=== PATIENT | male | born 1960 | race Caucasian/White ===

== ENCOUNTER 2016-07-07 18:08 | Outpatient (CLI) | payer MEDICAID | END 2016-07-07 18:09 | disposition critical access hospital (66) | LOC: EMS 18:08 | PROVIDERS: ATTEND Surgery | DX: R56.9 Unspecified convulsions (principal) | CPT/HCPCS: A0425; A0429 ==

== ENCOUNTER 2016-07-07 18:20 | Emergency (ER) | payer MEDICAID ==
[2016-07-07] MEDS ORDERED: FOLIC ACID INJ 1 MG, THIAMINE INJ 100 MG, MAGNESIUM SULFATE 2 GM, MULTIVITAMIN 10 ML in... IV STA ×5 (18:26)
--- NOTE | 2016-07-07 18:49 | ED Physician Documentation ---
PD HPI SEIZURE - Stated complaint Stated Complaint: SYNCOPE - Chief complaint Chief Complaint: Neuro - History obtained from History obtained from: Patient, Family, EMS - History of Present Illness Timing - onset: Today Witnessed: Witnessed Number of seizures: Single, Lasted minutes (2) Description of seizure activity: Generalized, Tonic clonic Injury during seizure: Fell, Head injury. 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 Did not drink EtOH today. Has been a heavy drinker for years. Review of Systems Ten Systems: 10 systems reviewed and negative Constitutional: denies: Fever, Chills Ears: denies: Ear pain Nose: denies: Rhinorrhea / runny nose, Congestion Throat: denies: Sore throat Cardiac: denies: Chest pain / pressure Respiratory: denies: Cough GI: denies: Abdominal Pain, Nausea, Vomiting, Diarrhea Skin: denies: Rash Musculoskeletal: denies: Neck pain, Back pain Neurologic: reports: Seizure. denies: Focal weakness, Numbness PD PAST MEDICAL HISTORY - Past Medical History Past Medical History: No - Past Surgical History Past Surgical History: No - Allergies Allergies/Adverse Reactions: Allergies Allergy/AdvReac Type Severity Reaction Status Date / Time Unable to Assess Allergy Verified 07/07/16 18:29 - Living Situation Living Situation: reports: With family Living Arrangement: reports: At home - Social History Does the pt drink ETOH?: Yes ETOH Use: Liquor Does the pt have substance abuse?: No PD ED PE NORMAL - Vitals Vital signs reviewed: Yes - General General: Alert and oriented X 3, No acute distress, Well developed/nourished - HEENT HEENT: Atraumatic, PERRL, EOMI, Ears normal, Moist mucous membranes, Pharynx benign, Other (2cm laceration bridge of nose) - Neck Neck: Supple, no meningeal sign, No bony TTP - Cardiac Cardiac: RRR, Strong equal pulses - Respiratory Respiratory: No respiratory distress, Clear bilaterally - Abdomen Abdomen: Soft, Non tender, Non distended - Back Back: No spinal TTP - Derm Derm: Warm and dry, No rash - Extremities Extremities: No deformity, No edema, No calf tenderness / cord - Neuro Neuro: Alert and oriented X 3, 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, No motor deficit, No sensory deficit, Normal speech, Other (resting tremor) - Psych Psych: Normal mood, Normal affect Results - Vitals Vitals: Vital Signs - 24 hr 07/07/16 07/07/16 18:25 21:33 Temperature 36.6 C Heart Rate 104 H 91 Respiratory 16 Rate Blood Pressure 172/111 H 147/100 H O2 Saturation 99 99 Oxygen O2 Source Room air - EKG (time done) 1829 Rate: Rate (enter#) (100) Rhythm: Sinus tachycardia [place]: Normal Intervals: Normal [place] QRS: Normal Ischemia: Normal ST segments Computer interpretation: Agree with computer - Labs Labs: Laboratory Tests 07/07/16 07/07/16 18:40 18:40 WBC 4.8 RBC 3.23 L Hgb 12.9 L Hct 37.9 L MCV 117.2 H MCH 39.9 H MCHC 34.0 RDW 15.4 H Plt Count 178 MPV 8.1 Neut # 3.6 Lymph # 0.8 L [place] # 0.3 Eos # 0.0 Baso # 0.1 Absolute Nucleated RBC 0.01 Nucleated RBCs 0.2 Manual Slide Review Indicated WBC Morphology NORMAL APPEARANCE Platelet Estimate NORMAL (130-450,000) Platelet Morphology NORMAL APPEARANCE RBC Morph Micro Appear 2+ MACROCYTOSIS Sodium 135 Potassium 3.4 L Chloride 97 L Carbon Dioxide 18 L Anion Gap 20.0 H BUN 9 Creatinine 0.6 Estimated GFR (MDRD) 141 Glucose 152 H Calcium 9.2 Total Bilirubin 1.3 H AST 113 H ALT 62 H Alkaline Phosphatase 83 Total Protein 6.8 Albumin 4.2 Globulin 2.6 Albumin/Globulin Ratio 1.6 Lipase 23 Ethyl Alcohol 9.2 - Rads (name of study) head CT Radiology: Prelim report reviewed, EMP read contemporaneously, See rad report ( Soft tissue swelling in the region of the nasal bones. No displaced nasal bone fracture. Nasal bones are partially out of the [id number]. Generalized age- related cortical atrophic changes without evidence of acute intracranial abnormality. ) cervical spine cT Radiology: Prelim report reviewed, EMP read contemporaneously, See rad report ( No fracture. Normal alignment. Multilevel degenerative disk and facet arthropathy, see above) Procedures - Laceration (location) bridge of nose Length in cm: 2 Wound type: Linear, Curved, Superficial, Into subcut fat, Clean Neurovascular status: Sensory intact, Motor intact, Vascular intact Wound Preparation: Irrigated copiously NS Skin layer closure: Dermabond Other: Patient tolerated well, No complications, Neurovascular intact, Tetanus UTD Complexity: Simple PD MEDICAL DECISION MAKING - ED course Complexity details: reviewed results, re-evaluated patient, considered differential, d/w patient, d/w family ED course: Patient is a 55-year-old gentleman who is a heavy alcoholic. Did not drink alcohol today and appears to have had an alcohol withdrawal seizure. Laceration across the bridge of the nose was repaired with Dermabond. Tolerated well. No acute findings on CT scans or laboratory testing. Given a banana bag here. Also given Ativan and his tremors resolved as did his tachycardia. He is given resources for alcohol detox and encouraged to pursue this as an outpatient for inpatient detox. No hallucination here. No further seizures. Patient and family counseled regarding signs and symptoms for which I believe and urgent re-evaluation would be necessary. Patient with good understanding of and agreement to plan and is comfortable going home at this time This document was made in part using voice recognition software. While efforts are made to proofread this document, sound alike and grammatical errors may occur. Departure - Departure Disposition: 01 Home, Self Care Clinical Impression: Alcohol withdrawal seizure Qualifiers: Complication of substance-induced condition: uncomplicated Qualified Code(s): F10.230 - Alcohol dependence with withdrawal, uncomplicated Nasal laceration Qualifiers: Encounter type: initial encounter Qualified Code(s): S01.21XA - Laceration without foreign body of nose, initial encounter Condition: Good Instructions: ED Seizure Alcohol Withdrawal Follow-Up: your,doctor in 1 week [Other] Comments: You were given resources for alcohol detox tonight. You need to go to an inpatient detox unit. You have damage to your liver and brain from your alcohol use. Return if you worsen. Discharge Date/Time: 07/07/16 21:57
[2016-07-07 18:59] LABS: BASOPHILS # (AUTO) 0.1 10^3/uL (0.0-0.1); BASOPHILS % (AUTO) 1.3 %; EOSINOPHILS % (AUTO) 0.8 %; HCT - HEMATOCRIT 37.9 % (42.0-52.0); HGB - HEMOGLOBIN 12.9 g/dL (14.0-18.0); LYMPHOCYTES # (AUTO) 0.8 10^3/uL (1.5-3.5); LYMPHOCYTES % (AUTO) 17.1 %; MEAN CORPUSCULAR HEMOGLOBIN 39.9 pg (27.0-31.0); MEAN CORPUSCULAR VOLUME 117.2 fL (80.0-94.0); MEAN PLATELET VOLUME 8.1 fL (7.4-11.4); MONOCYTES # (AUTO) 0.3 10^3/uL (0.0-1.0); MONOCYTES % (AUTO) 6.9 %; NEUTROPHILS # (AUTO) 3.6 10^3/uL (1.5-6.6); NEUTROPHILS % (AUTO) 73.9 %; NUCLEATED RED BLOOD CELLS AUTO 0.2 /100WBC; RED BLOOD COUNT 3.23 10^6/uL (4.70-6.10); RED CELL DISTRIBUTION WIDTH 15.4 % (12.0-15.0); UNCORRECTED WHITE BLOOD COUNT 4.8 x10^3/uL; WHITE BLOOD COUNT 4.8 x10^3/uL (4.8-10.8)
[2016-07-07 19:08] LABS: ALBUMIN/GLOBULIN RATIO 1.6 (1.0-2.2); BILIRUBIN,TOTAL 1.3 mg/dL (0.2-1.0); CALCIUM 9.2 mg/dL (8.5-10.3); CREATININE 0.6 mg/dL (0.6-1.2); POTASSIUM 3.4 mmol/L (3.5-5.0); TOTAL PROTEIN 6.8 g/dL (6.7-8.2)
--- NOTE | 2016-07-07 19:45 | CT Preliminary Report ---
Exam: CT Head W/O IMPRESSION: 1. Soft tissue swelling in the region of the nasal bones. No displaced nasal bone fracture. Nasal bon es are partially out of the field of view. 2. Generalized age-related cortical atrophic changes without evidence of acute intracranial abnormali ty. [facility] SITE ID: [id number]
--- NOTE | 2016-07-07 19:53 | CT Preliminary Report ---
Exam: CT Cervical Spine W/O IMPRESSION: 1. No fracture. 2. Normal alignment. Multilevel degenerative disk and facet arthropathy, see above. [facility] SITE ID: [id number]
[2016-07-07] MEDS ORDERED: LORazepam 2 MG/ML SYRINGE IVP STA (20:09)
[2016-07-07 20:12] LABS: PLATELET ESTIMATE, MANUAL NORMAL (130-450,000) (NORMAL); PLATELET MORPHOLOGY NORMAL APPEARANCE (NORMAL)
[2016-07-07 20:13] LABS: WBC MORPHOLOGY (MULTIPLE) NORMAL APPEARANCE (NORMAL)
[2016-07-07] MEDS ORDERED: LORazepam 2 MG/ML SYRINGE ONE (20:20)
--- NOTE | 2016-07-07 20:20 | CT Report ---
EXAM: CT CERVICAL SPINE WITHOUT CONTRAST DATE: 07/07/2016 07:14 PM HISTORY: Fall, neck pain. COMPARISONS: None. TECHNIQUE: Thin-section axial images were acquired of the cervical spine without contrast. Post-proce ssing: Coronal and sagittal reformats. Other: None. In accordance with CT protocol optimization, one or more of the following dose reduction techniques w ere utilized for this exam: automated exposure control, adjustment of mA and/or KV based on patient s ize, or use of iterative reconstructive technique. FINDINGS: Alignment: Normal. No scoliosis or spondylolisthesis. Bones: No fracture or bone lesion. Interspace Levels/Facets: C1-C2: Mild degenerative changes at the C1 arch and dens articulation. C2-C3: Mild disk narrowing. C3-C4: Mild disk narrowing. C4-C5: Mild disk narrowing with small disk osteophyte complex. No foraminal stenosis. C5-C6: Mild to moderate disk narrowing with prominent disk osteophyte complex. Moderate to marked lef t and mild right foraminal stenosis. C6-C7: Mild to moderate disk narrowing with prominent disk osteophyte complex. Mild to moderate right foraminal stenosis. C7-T1: Unremarkable. Musculature: Normal. No fatty atrophy. Other: The paravertebral and prevertebral soft tissues are normal. The lung apices are clear. IMPRESSION: 1. No fracture. 2. Normal alignment. Multilevel degenerative disk and facet arthropathy, see above. [facility] Referring Provider Line: [phone] SITE ID: [id number]
--- NOTE | 2016-07-07 20:22 | CT Report ---
EXAM: CT HEAD EXAM DATE: 07/07/2016 07:12 PM. CLINICAL HISTORY: Seizure. COMPARISON: None. TECHNIQUE: Multiaxial CT images were obtained from the foramen magnum to the vertex. IV contrast: Non e. Reformats: Coronal. In accordance with CT protocol optimization, one or more of the following dose reduction techniques w ere utilized for this exam: automated exposure control, adjustment of mA and/or KV based on patient s ize, or use of iterative reconstructive technique. FINDINGS: Parenchyma: No intraparenchymal hemorrhage. No evidence of mass, midline shift, or CT findings of acu te infarction. Worrell-white differentiation is distinct. Extraaxial Spaces: Normal for age. No subdural or epidural collections identified. Ventricles: The ventricles and cortical sulci are enlarged, consistent with age-related tissue loss. Sinuses: Imaged paranasal sinuses, orbits, and mastoids show no significant abnormality. Bones: No evidence of fracture or calvarial defect. Other: Diffuse chronic microangiopathic white matter changes are evident. Mild swelling overlies the nasal bones. Nasal bones are not well evaluated and partially extend out of the [id number]. IMPRESSION: 1. Soft tissue swelling in the region of the nasal bones. No displaced nasal bone fracture. Nasal bon es are partially out of the [id number]. 2. Generalized age-related cortical atrophic changes without evidence of acute intracranial abnormali ty. [facility] Referring Provider Line: [phone] SITE ID: [id number]
[2016-07-07 21:34] VITALS: BP 147/100
== END 2016-07-07 21:57 | disposition home or self-care (01) ==
LOC: ED 18:20
DX: F10.239 Alcohol dependence with withdrawal, unspecified (principal); R56.9 Unspecified convulsions; S01.21XA Laceration without foreign body of nose, initial encounter; W01.0XXA Fall on same level from slipping, tripping and stumbling without subsequent striking against object, initial encounter
CPT/HCPCS: 12011; 36415; 70450; 72125; 80053; 80320; 83690; 85025; 93005; 93010; 96374; 96375; 99284; J2060; J3411

== ENCOUNTER 2017-02-25 08:12 | Observation (INO) | payer MEDICAID ==
[2017-02-25] MEDS ORDERED: SODIUM CHLORIDE 0.9% 1,000 ML IV ONE ×2 (09:09→10:41)
--- NOTE | 2017-02-25 09:12 | ED Physician Documentation ---
History of Present Illness - Stated complaint Stated Complaint: VOMITING/LETHARGIC - Chief complaint Chief Complaint: General - History obtained from History obtained from: Patient, Family (spouse) - Additonal information Additional information: The patient is a 56-year-old alcoholic male who presents with history of vomiting intermittently for the past week. He has had no alcohol for the past day and a half, and has become increasingly tremulous and nauseated. He complains of upper abdominal pain which he ascribes to "heartburn." He reports increasing difficulty with balance, as well as double vision. He has been sleepy. He reports cough, without sputum production. He denies fever. Past medical history is significant for alcohol withdrawal seizure in June 2016. Review of Systems Constitutional: reports: Fatigue. denies: Fever Eyes: reports: Other (Double vision) Ears: denies: Tinnitus/ringing Nose: denies: Congestion Throat: denies: Sore throat Cardiac: denies: Chest pain / pressure Respiratory: reports: Cough. denies: Dyspnea GI: reports: Abdominal Pain, Nausea, Vomiting. denies: Diarrhea : denies: Dysuria Skin: denies: Rash Musculoskeletal: denies: Back pain, Extremity pain Neurologic: reports: Generalized weakness, Other (Difficulty with balance.). denies: Focal weakness, Numbness, Headache, Head injury PD PAST MEDICAL HISTORY - Past Medical History Cardiovascular: None Respiratory: None Neuro: Other (Alcohol withdrawal seizure) Endocrine/Autoimmune: None - Past Surgical History Past Surgical History: No - Present Medications Home Medications: Ambulatory Orders Medication Instructions Recorded Confirmed No Known Home Medications [No 02/25/17 02/25/17 Known Home Medications] - Allergies Allergies/Adverse Reactions: Allergies Allergy/AdvReac Type Severity Reaction Status Date / Time Unable to Assess Allergy Verified 02/25/17 08:23 - Living Situation Living Situation: reports: With spouse/s.o. Living Arrangement: reports: At home - Social History Does the pt drink ETOH?: Yes Does the pt have substance abuse?: No PD ED PE NORMAL - Vitals Vital signs reviewed: Yes (Tachycardic) - General General: Alert and oriented X 3, Other (Tremulous) - HEENT HEENT: Atraumatic, PERRL, Pharynx benign, Other (Nystagmus bilaterally.) - Neck Neck: Supple, no meningeal sign, No adenopathy, No JVD - Cardiac Cardiac: No murmur, Other (Rapid rate, regular rhythm.) - Respiratory Respiratory: No respiratory distress, Clear bilaterally - Abdomen Abdomen: Soft, Other (Mild upper abdominal tenderness to palpation, more right than left. No rebound tenderness or guarding.) - Back Back: No CVA TTP - Derm Derm: No rash - Extremities Extremities: No edema, No calf tenderness / cord - Neuro Neuro: Alert and oriented X 3, No motor deficit, No sensory deficit, Other ( Generalized tremulousness.) Eye Opening: Spontaneous Motor: Obeys Commands Verbal: Oriented GCS Score: 15 Results - Vitals Vitals: Vital Signs - 24 hr 02/25/17 02/25/17 08:18 13:32 Temperature 36.3 C L Heart Rate 128 H 86 Respiratory 16 17 Rate Blood Pressure 130/100 H 136/89 H O2 Saturation 100 96 Oxygen O2 Source Room air - EKG (time done) 09:34 Rate: Rate (enter#) (90) Rhythm: NSR [place]: Normal Intervals: Normal [place] QRS: Normal Ischemia: Normal ST segments Computer interpretation: Agree with computer - Labs Labs: Laboratory Tests 02/25/17 02/25/17 02/25/17 09:05 09:05 09:05 WBC 7.4 RBC 3.98 L Hgb 14.4 Hct 40.4 L MCV 101.5 H MCH 36.2 H MCHC 35.6 RDW 15.9 H Plt Count 175 MPV 7.6 Neut # 6.0 Lymph # 0.6 L [place] # 0.8 Eos # 0.0 Baso # 0.0 Absolute Nucleated RBC 0.02 Nucleated RBC % 0.3 PT 12.1 INR 1.1 Sodium 133 L Potassium 3.8 Chloride 91 L Carbon Dioxide 16 L Anion Gap 26.0 H BUN 19 Creatinine 0.9 Estimated GFR (MDRD) 88 L Glucose 158 H Lactic Acid Calcium 9.6 Total Bilirubin 4.0 H AST 68 H ALT 74 H Alkaline Phosphatase 68 Troponin I Total Protein 7.7 Albumin 4.7 Globulin 3.0 Albumin/Globulin Ratio 1.6 Lipase 58 H Ethyl Alcohol < 5.0 02/25/17 02/25/17 09:05 15:15 WBC RBC Hgb Hct MCV MCH MCHC RDW Plt Count MPV Neut # Lymph # [place] # Eos # Baso # Absolute Nucleated RBC Nucleated RBC % PT INR Sodium Potassium Chloride Carbon Dioxide Anion Gap BUN Creatinine Estimated GFR (MDRD) Glucose Lactic Acid 1.4 Calcium Total Bilirubin AST ALT Alkaline Phosphatase Troponin I < 0.04 Total Protein Albumin Globulin Albumin/Globulin Ratio Lipase Ethyl Alcohol - Rads (name of study) head CT Radiology: Prelim report reviewed, EMP read contemporaneously, See rad report ( No acute abnormality or interval change.) PD MEDICAL DECISION MAKING - ED course Complexity details: reviewed old records, reviewed results, re-evaluated patient , considered differential, d/w patient, d/w family, d/w knowledge management consultant ED course: The patient's presentation is significant for hyperbilirubinemia and vomiting with dehydration. Bilirubin is elevated at 4.0. The patient has been unable to eat or drink due to nausea and vomiting, and has subsequently developed alcohol withdrawal symptoms. Treatment in the emergency department included administration of normal saline 2 L IV, as well as a banana bag, lorazepam 1 mg IV, Zofran 4 mg IV, and hydromorphone 1 mg IV. Despite the above treatment he was not able to provide a urine sample. Bladder scan reveals in excess of 300 mL in the bladder. A Capone catheter is being inserted. I discussed his condition with Dr. Mckeon who will admit him on observation status for further evaluation and treatment. Departure - Departure Disposition: ED Place in Observation Clinical Impression: Hyperbilirubinemia, Dehydration Vomiting Qualifiers: Vomiting type: unspecified Vomiting Intractability: non-intractable Nausea presence: with nausea Qualified Code(s): R11.2 - Nausea with vomiting, unspecified Alcohol withdrawal Qualifiers: Complication of substance-induced condition: with unspecified complication Qualified Code(s): F10.239 - Alcohol dependence with withdrawal, unspecified Condition: Stable
[2017-02-25] MEDS ORDERED: LORazepam 2 MG/ML VIAL IVP STA (09:17)
[2017-02-25 09:33] LABS: BASOPHILS % (AUTO) 0.3 %; HGB - HEMOGLOBIN 14.4 g/dL (14.0-18.0); LYMPHOCYTES # (AUTO) 0.6 10^3/uL (1.5-3.5); LYMPHOCYTES % (AUTO) 8.6 %; MEAN CORPUSCULAR HEMOGLOBIN 36.2 pg (27.0-31.0); MEAN CORPUSCULAR HGB CONC 35.6 g/dL (32.0-36.0); MEAN CORPUSCULAR VOLUME 101.5 fL (80.0-94.0); MEAN PLATELET VOLUME 7.6 fL (7.4-11.4); MONOCYTES # (AUTO) 0.8 10^3/uL (0.0-1.0); MONOCYTES % (AUTO) 10.3 %; NEUTROPHILS % (AUTO) 80.8 %; PLT - PLATELET COUNT 175 10^3/uL (130-450); RED BLOOD COUNT 3.98 10^6/uL (4.70-6.10); RED CELL DISTRIBUTION WIDTH 15.9 % (12.0-15.0); WHITE BLOOD COUNT 7.4 x10^3/uL (4.8-10.8)
[2017-02-25 09:34] LABS: ALBUMIN 4.7 g/dL (3.2-5.5); ALBUMIN/GLOBULIN RATIO 1.6 (1.0-2.2); ALKALINE PHOSPHATASE 68 IU/L (42-121); ALT ALANINE AMINOTRANSFERASE 74 IU/L (10-60); AST ASPARTATE AMINOTRANSFERASE 68 IU/L (10-42); BUN - BLOOD UREA NITROGEN 19 mg/dL (6-20); CALCIUM 9.6 mg/dL (8.5-10.3); CARBON DIOXIDE - CO2 16 mmol/L (21-32); CHLORIDE 91 mmol/L (101-111); CREATININE 0.9 mg/dL (0.6-1.2); GFR - MDRD 88 (>89); GLUCOSE 158 mg/dL (70-100); LIPASE 58 U/L (22-51); SODIUM 133 mmol/L (135-145); TOTAL PROTEIN 7.7 g/dL (6.7-8.2)
[2017-02-25 09:39] LABS: INR 1.1 (0.8-1.2); PT - PROTHROMBIN TIME 12.1 secs (9.9-12.6)
[2017-02-25] MEDS ORDERED: diphenhydrAMINE 25 MG CAPSULE PO STA (09:41)
--- NOTE | 2017-02-25 10:25 | CT Report ---
EXAM: CT HEAD EXAM DATE: 02/25/2017 09:55 AM. CLINICAL HISTORY: Alcoholic with history of falls, visual impairment. COMPARISON: 07/07/2016. TECHNIQUE: Multiaxial CT images were obtained from the foramen magnum to the vertex. Reformats: Coron al. IV contrast: None. In accordance with CT protocol optimization, one or more of the following dose reduction techniques w ere utilized for this exam: automated exposure control, adjustment of mA and/or KV based on patient s ize, or use of iterative reconstructive technique. FINDINGS: Parenchyma: No intraparenchymal hemorrhage. No evidence of mass, midline shift, or CT findings of inf arction. Worrell-white differentiation is distinct. Extraaxial Spaces: Normal for age. No subdural or epidural collections identified. Ventricles: Normal in size and position. Sinuses and Orbits: Imaged paranasal sinuses, orbits, and mastoids show no significant abnormality. Bones: No evidence of fracture or calvarial defect. Other: None. IMPRESSION: No acute abnormality or interval change. [facility] Referring Provider Line: [phone] SITE ID: [id number]
[2017-02-25] MEDS ORDERED: HYDROmorphone 1 MG/ML SYRINGE IVP STA (10:40)
[2017-02-25] MEDS ORDERED: MAGNESIUM SULFATE 2 GRAM 2 GM/50 ML BAG IV STA (10:41)
[2017-02-25] MEDS ORDERED: THIAMINE INJ 100 MG, FOLIC ACID INJ 1 MG in SODIUM CHLORIDE 0.9% 100ML 100 ML IV STA (10:41)
[2017-02-25] MEDS ORDERED: MULTIVITAMIN 10 ML in SODIUM CHLORIDE 0.9% 1,000 ML IV STA (10:41)
[2017-02-25] MEDS ORDERED: HYDROmorphone 1 MG/ML SYRINGE IVP PRN (16:09)
[2017-02-25] MEDS ORDERED: PROMETHAZINE 25 MG/1 ML VIAL IM PRN (16:09)
[2017-02-25] MEDS ORDERED: PROCHLORPERAZINE 10 MG/2 ML VIAL IVP PRN (16:09)
[2017-02-25] MEDS ORDERED: TEMAZEPAM 15 MG CAPSULE PO PRN (16:09)
[2017-02-25] MEDS ORDERED: oxyCODONE 5 MG TABLET PO PRN ×2 (16:09)
[2017-02-25] MEDS ORDERED: ONDANSETRON 4 MG/2 ML VIAL IVP PRN (16:09)
[2017-02-25 16:28] LABS: GLUCOSE, URINE (UA) NEGATIVE (NEGATIVE); KETONES,URINE (UA) >=80 mg/dL (NEGATIVE); LEUKOCYTE ESTERASE, URINE NEGATIVE (NEGATIVE); NITRITE,URINE NEGATIVE (NEGATIVE); OCCULT BLOOD,URINE SMALL (NEGATIVE); PROTEIN,URINE 30 mg/dL (NEGATIVE); UROBILINOGEN,URINE 4 E.U./dL (NORMAL)
[2017-02-25 16:36] LABS: CLARITY,URINE HAZY (CLEAR)
[2017-02-25 16:37] LABS: BACTERIA,URINE Few /HPF (None Seen); BILIRUBIN,URINE MODERATE (NEGATIVE); ICTOTEST,URINE POSITIVE; MUCUS,URINE Moderate Strands; RBC,URINE TNTC /HPF (0-5); SQUAMOUS EPITHELIAL CELL,UR FEW Squamous (<= Few)
[2017-02-25 16:38] LABS: CASTS, URINE 6-10 Hyaline Casts /LPF
[2017-02-25 16:41] LABS: MUDS CUTOFF CONCENTRATIONS CUTOFF CONC BELOW:
[2017-02-25 16:50] LABS: KETONES, SERUM (ACETEST) MODERATE (NEGATIVE)
[2017-02-25 16:51] LABS: SALICYLATE < 6.0 mg/dL
[2017-02-25 16:53] LABS: ACETAMINOPHEN < 10 ug/mL (10-30)
[2017-02-25] MEDS: GI COCKTAIL 120 ML BOTTLE PO SCH ×2 (16:59→21:25)
[2017-02-25] MEDS: LORazepam 2 MG/ML VIAL IVP PRN ×3 (16:59→21:24)
[2017-02-25] MEDS ORDERED: MAGNESIUM SULFATE 2 GRAM 2 GM/50 ML BAG IV ONE (17:00)
[2017-02-25 17:09] LABS: AMPHETAMINE SCREEN,URINE NEGATIVE (NEGATIVE); BENZODIAZEPINES SCREEN, URINE NEGATIVE (NEGATIVE); COCAINE SCREEN URINE NEGATIVE (NEGATIVE); METHADONE SCREEN, URINE NEGATIVE (NEGATIVE); METHAMPHETAMINES SCREEN, URINE NEGATIVE (NEGATIVE); OPIATE SCREEN, URINE POSITIVE (NEGATIVE); OXYCODONE SCREEN, URINE NEGATIVE (NEGATIVE); PROPOXYPHENE SCREEN, URINE NEGATIVE (NEGATIVE); TRICYCLIC ANTIDEPRESSANT,URINE NEGATIVE (NEGATIVE)
[2017-02-25] MEDS: SODIUM CHLORIDE FLUSH 0.9% 10 ML SYRINGE IVP PRN (18:04)
[2017-02-25] MEDS: FAMOTIDINE 20 MG/50 ML 50 ML IV SCH (21:24)
[2017-02-25] MEDS: SODIUM CHLORIDE FLUSH 0.9% 10 ML SYRINGE IVP SCH (21:24)
[2017-02-26] MEDS: SODIUM CHLORIDE FLUSH 0.9% 10 ML SYRINGE IVP PRN ×3 (00:16→08:54)
[2017-02-26] MEDS: LORazepam 2 MG/ML VIAL IVP PRN ×2 (00:16→08:04)
[2017-02-26 05:25] LABS: BASOPHILS % (AUTO) 0.6 %; EOSINOPHILS % (AUTO) 0.7 %; HGB - HEMOGLOBIN 12.1 g/dL (14.0-18.0); LYMPHOCYTES # (AUTO) 0.9 10^3/uL (1.5-3.5); LYMPHOCYTES % (AUTO) 15.5 %; MEAN CORPUSCULAR HEMOGLOBIN 35.9 pg (27.0-31.0); MEAN CORPUSCULAR HGB CONC 35.5 g/dL (32.0-36.0); MEAN CORPUSCULAR VOLUME 101.1 fL (80.0-94.0); MEAN PLATELET VOLUME 8.2 fL (7.4-11.4); MONOCYTES # (AUTO) 0.7 10^3/uL (0.0-1.0); MONOCYTES % (AUTO) 11.2 %; NEUTROPHILS # (AUTO) 4.2 10^3/uL (1.5-6.6); PLT - PLATELET COUNT 144 10^3/uL (130-450); RED BLOOD COUNT 3.37 10^6/uL (4.70-6.10); RED CELL DISTRIBUTION WIDTH 15.5 % (12.0-15.0); WHITE BLOOD COUNT 5.9 x10^3/uL (4.8-10.8)
[2017-02-26 05:30] LABS: ALBUMIN 3.9 g/dL (3.2-5.5); ALBUMIN/GLOBULIN RATIO 1.6 (1.0-2.2); BILIRUBIN,TOTAL 3.2 mg/dL (0.2-1.0); CALCIUM 9.1 mg/dL (8.5-10.3); CREATININE 0.5 mg/dL (0.6-1.2); MAGNESIUM 1.2 mg/dL (1.7-2.8); PHOSPHORUS 1.1 mg/dL (2.5-4.6); TOTAL PROTEIN 6.4 g/dL (6.7-8.2)
[2017-02-26 05:39] LABS: INR 1.1 (0.8-1.2); PT - PROTHROMBIN TIME 12.4 secs (9.9-12.6)
[2017-02-26] MEDS: SODIUM CHLORIDE FLUSH 0.9% 10 ML SYRINGE IVP SCH ×2 (05:55→14:29)
[2017-02-26] MEDS ORDERED: MAGNESIUM SULFATE 2 GRAM 2 GM/50 ML BAG IV ONE (08:11)
--- NOTE | 2017-02-26 08:28 | HISTORY & PHYSICAL EXAMINATION ---
Chief Complaint - Chief Complaint Chief Complaint: Vomiting History of Present Illness - Admitted From Admitted From:: Emergency department - History Obtained From Records Reviewed: Yes History obtained from: Patient Exam Limitations: None - History of Present Illness HPI Comment/Other: Patient is a 56-year-old gentleman with a past medical history significant for alcohol abuse status post alcohol rehab 1-1/2 years ago who is a current daily drinker and presents to the emergency department with a chief complaint of vomiting. The patient states that he has been having episodes of vomiting for the last 2 months however symptoms became significantly worse over the last week. He states that there is a garbage can next to him on the couch which is filled with bile over the last week. The patient states that over the last couple of days he has been coughing up phlegm and eventually vomits. He also complains of acid reflux. The patient states that he stopped drinking 2 days ago. He states that prior to that he was drinking about a half 1/5 of whiskey every night. The patient's also appear tremulous in the emergency department and states that his tremors have been ongoing for the last 3 months. He does state however that the tremors have been worse the last few days and that he has been having a hard time sleeping because he feels agitated and gets up every couple of hours. The patient also admits to generalized weakness he states he is so weak that he is barely able to stand up from his couch at home. The patient states that today he came into the ER because his girlfriend became concerned when she saw how much vomit was in the garbage can and due to the fact the patient was so weak. Today the patient has been having difficulty with his balance and has barely been able to walk without falling. He states that he has been holding onto the gray to keep himself up. The patient does have a history of alcohol withdrawal seizure in June 2016. Patient denies any fevers, chills, recent unintentional weight loss, changes in his appetite, headaches, night sweats, nasal congestion, sore throat, difficulty swallowing, neck pain, chest pain, shortness of air, orthopnea, PND, abdominal pain, diarrhea, constipation, urinary urgency, urinary frequency, dysuria, joint swelling, joint pain, muscle aches, back pain, neck stiffness, or any focal neurologic deficits. On presentation to the emergency department the patient was afebrile but he was tachycardic and hypertensive. The patient was also very tremulous and appeared to be in alcohol withdrawal. The patient underwent lab work which did reveal that he was hyponatremic with a significant anion gap metabolic acidosis. The patient's serum was positive for ketones concerning for alcoholic ketoacidosis. The patient also had a total bili of 4.0 with elevated AST and ALT. The patient did undergo a CT of his head which revealed no acute abnormality or interval change. The patient did appear to be confused and while in the emergency department did mention some visual hallucinations. The patient was given several doses of Ativan and IV fluids and after spending nearly 7 hours in the emergency department it was determined that the patient needed to be placed in observation for further treatment of alcohol withdrawal and his alcoholic ketoacidosis. History - Past Medical History Cardiovascular: reports: None Respiratory: reports: None Neuro: reports: Other (Tremors) Endocrine/Autoimmune: reports: None Psych: reports: Other (Alcohol abuse) - Family & Social History Family History: Mother: Alive and Well, Father: Diabetes, Type 2, Sister: Alive and Well Living arrangement: At home Living Situation: With spouse/s.o. Social History Notes: Patient is born in [place] and currently lives in [place] with his girlfriend. Patient states he did spend several years in [place]. 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 The patient previously worked in [employer]. He has never been and does not have any children. The patient's been smoking half a pack a day for the last 35 years and states he quit 2 days ago. The patient has been drinking heavily for at least the last 10 years but states he has been drinking since the age of 14. The patient states he drinks half 1/ 5 a night of whiskey. He denies any illicit drug use - POLST Patient has POLST: No POLST Status: Full Code Meds/Allgy - Home Medications Home Medications: Ambulatory Orders Medication Instructions Recorded Confirmed No Known Home Medications [No 02/25/17 02/25/17 Known Home Medications] - Allergies Allergies/Adverse Reactions: Allergies Allergy/AdvReac Type Severity Reaction Status Date / Time No Known Drug Allergies Allergy Verified 02/25/17 21:55 Review of Systems - Other Findings Other Findings: A comprehensive review of systems was performed the pertinent positives and negatives are stated above in the HPI and the remainder of the review of systems is negative. Exam - Vital Signs Reviewed Vital Signs: Yes Vital Signs: Vital Signs x48h Temp Pulse Resp BP Pulse Ox 02/26/17 03:43 36.8 C 103 H 17 138/90 H 96 - Physical Exam General Appearance: positive: Alert, Mild distress, Other (He is alert but has significant tremors and appears quite flushed. The patient seems to have difficulty giving me history as he is not specific about timeframe of when events occurred and at times seems to be confused.) Eyes Bilateral: positive: Normal inspection, PERRL, EOMI, No lid inflammation, Conjunctivae nml, No scleral icterus ENT: positive: ENT inspection nml, Pharynx nml, Dry mucous membranes. negative : Purulent nasal drainage, Pharyngeal erythema, Oral lesions Neck: positive: Nml inspection, Thyroid nml, No JVD, Trachea midline. negative : Thyromegaly, Lymphadenopathy (R), Lymphadenopathy (L), Stiff neck, Carotid bruit, Tracheal deviation Respiratory: positive: Chest non-tender, No respiratory distress, Breath sounds nml. negative: Wheezes, Rales, Rhonchi Cardiovascular: positive: No murmur, No gallop, Tachycardia Peripheral Pulses: positive: 2+ Abdomen: positive: Non-tender, No organomegaly, Nml bowel sounds, No distention. negative: Guarding, Rebound Back: positive: Nml inspection. negative: CVA tenderness (R), CVA tenderness (L ) Skin: positive: Color nml, No rash, Warm, Other (Flushed) Extremities: positive: Non-tender, Full ROM, Nml appearance, No pedal edema, Other (Tremor) Neurologic/Psychiatric: positive: Oriented x3, CN's nml (2-12), Motor nml, Sensation nml, Mood/affect nml Conclusion/Plan - Problem List (1) Alcohol withdrawal Conclusion/Plan: The patient has alcohol withdrawal with tremors, nausea and vomiting. His blood work also reveals alcoholic ketoacidosis and an elevated bilirubin and LFTs. Plan: Patient will be placed on IV fluids with a banana bag Daily thiamine, folate and multivitamin Patient will be given IV magnesium We will monitor his electrolytes closely Patient will be placed on CIWA protocol with Ativan IV as needed for alcohol withdrawal We will get a abdominal ultrasound for elevated LFTs Monitor LFTs Qualifiers: Complication of substance-induced condition: with unspecified complication Qualified Code(s): F10.239 - Alcohol dependence with withdrawal, unspecified (2) Alcoholic ketoacidosis Conclusion/Plan: Patient has history of alcoholism and presents with vomiting and severe dehydration. The patient's lab work reveals that he does have anion gap metabolic acidosis concerning for alcoholic ketoacidosis as he does have ketones in his serum. Plan: IV fluids and nutrition Monitor patient's chemistry (3) Hyponatremia Conclusion/Plan: Patient presents with hyponatremia he appears to be dehydrated and likely has hypovolemic hyponatremia. Patient will be given IV fluids and we will continue to monitor his sodium. (4) Elevated LFTs Conclusion/Plan: The patient does have elevated LFTs with significantly elevated bilirubin, AST and ALT. Given the patient's history of alcoholism it is concerning for possibility of cirrhosis. The patient however does not have any other sequelae of liver cirrhosis. Plan: Monitor LFTs Abdominal ultrasound (5) Hyperglycemia Conclusion/Plan: The patient does have hyperglycemia on presentation with a glucose of 158. Patient does not have any previous history of diabetes but does have family history. We will monitor his glucose daily and check hemoglobin A1c. (6) Tobacco abuse Conclusion/Plan: Patient has history of tobacco abuse as he smokes half a pack a day up until 2 days ago. Patient was counseled on the need to quit smoking and was offered a nicotine patch. - Lab Results Lab results reviewed: Yes Fish Bones: 02/26/17 05:00 02/26/17 05:00 Other Lab Results: Laboratory Results WBC 5.9 x10^3/uL (4.8-10.8) 02/26/17 05:00 RBC 3.37 10^6/uL (4.70-6.10) L 02/26/17 05:00 Hgb 12.1 g/dL (14.0-18.0) L 02/26/17 05:00 Hct 34.1 % (42.0-52.0) L 02/26/17 05:00 MCV 101.1 fL (80.0-94.0) H 02/26/17 05:00 MCH 35.9 pg (27.0-31.0) H 02/26/17 05:00 MCHC 35.5 g/dL (32.0-36.0) 02/26/17 05:00 RDW 15.5 % (12.0-15.0) H 02/26/17 05:00 Plt Count 144 10^3/uL (130-450) 02/26/17 05:00 MPV 8.2 fL (7.4-11.4) 02/26/17 05:00 Neut # 4.2 10^3/uL (1.5-6.6) 02/26/17 05:00 Lymph # 0.9 10^3/uL (1.5-3.5) L 02/26/17 05:00 [place] # 0.7 10^3/uL (0.0-1.0) 02/26/17 05:00 Eos # 0.0 10^3/uL (0.0-0.7) 02/26/17 05:00 Baso # 0.0 10^3/uL (0.0-0.1) 02/26/17 05:00 Absolute Nucleated RBC 0.02 x10^3/uL 02/26/17 05:00 Nucleated RBC % 0.4 /100WBC 02/26/17 05:00 PT 12.4 secs (9.9-12.6) 02/26/17 05:00 INR 1.1 (0.8-1.2) 02/26/17 05:00 Sodium 131 mmol/L (135-145) L 02/26/17 05:00 Potassium 3.3 mmol/L (3.5-5.0) L 02/26/17 05:00 Chloride 97 mmol/L (101-111) L 02/26/17 05:00 Carbon Dioxide 22 mmol/L (21-32) 02/26/17 05:00 Anion Gap 12.0 (6-13) 02/26/17 05:00 BUN 15 mg/dL (6-20) 02/26/17 05:00 Creatinine 0.5 mg/dL (0.6-1.2) L 02/26/17 05:00 Estimated GFR (MDRD) 173 (>89) 02/26/17 05:00 Glucose 115 mg/dL (70-100) H 02/26/17 05:00 Lactic Acid 1.4 mmol/L (0.5-2.2) 02/25/17 15:15 Calcium 9.1 mg/dL (8.5-10.3) 02/26/17 05:00 Phosphorus 1.1 mg/dL (2.5-4.6) L 02/26/17 05:00 Magnesium 1.2 mg/dL (1.7-2.8) L 02/26/17 05:00 Total Bilirubin 3.2 mg/dL (0.2-1.0) H 02/26/17 05:00 AST 64 IU/L (10-42) H 02/26/17 05:00 ALT 51 IU/L (10-60) 02/26/17 05:00 Alkaline Phosphatase 53 IU/L (42-121) 02/26/17 05:00 Troponin I < 0.04 ng/mL (<0.49) 02/25/17 09:05 Total Protein 6.4 g/dL (6.7-8.2) L 02/26/17 05:00 Albumin 3.9 g/dL (3.2-5.5) 02/26/17 05:00 Globulin 2.5 g/dL (2.1-4.2) 02/26/17 05:00 Albumin/Globulin Ratio 1.6 (1.0-2.2) 02/26/17 05:00 Lipase 58 U/L (22-51) H 02/25/17 09:05 Urine Color DARK YELLOW 02/25/17 16:15 Urine Clarity HAZY (CLEAR) 02/25/17 16:15 Urine pH 6.0 PH (5.0-7.5) 02/25/17 16:15 Ur Specific [place] >=1.030 (1.002-1.030) H 02/25/17 16:15 Urine Protein 30 mg/dL (NEGATIVE) H 02/25/17 16:15 Urine Glucose (UA) NEGATIVE mg/dL (NEGATIVE) 02/25/17 16:15 Urine Ketones >=80 mg/dL (NEGATIVE) H 02/25/17 16:15 Urine Occult Blood SMALL (NEGATIVE) H 02/25/17 16:15 Urine Nitrite NEGATIVE (NEGATIVE) 02/25/17 16:15 Urine Bilirubin MODERATE (NEGATIVE) H 02/25/17 16:15 Urine Urobilinogen 4 E.U./dL (NORMAL) H 02/25/17 16:15 Ur Leukocyte Esterase NEGATIVE (NEGATIVE) 02/25/17 16:15 Urine RBC TNTC /HPF (0-5) H 02/25/17 16:15 Urine WBC 4-5 /HPF (0-3) 02/25/17 16:15 Ur Squamous Epith Cells FEW Squamous (<= Few) 02/25/17 16:15 Urine Bacteria Few /HPF (None Seen) 02/25/17 16:15 Urine Casts 6-10 Hyaline Casts /LPF 02/25/17 16:15 Urine Mucus Moderate Strands 02/25/17 16:15 Ur Microscopic Review INDICATED 02/25/17 16:15 Urine Culture Comments NOT INDICATED 02/25/17 16:15 Salicylates < 6.0 mg/dL 02/25/17 16:32 Urine Opiates Screen POSITIVE (NEGATIVE) H 02/25/17 16:15 Ur Oxycodone Screen NEGATIVE (NEGATIVE) 02/25/17 16:15 Urine Methadone Screen NEGATIVE (NEGATIVE) 02/25/17 16:15 Ur Propoxyphene Screen NEGATIVE (NEGATIVE) 02/25/17 16:15 Acetaminophen < 10 ug/mL (10-30) L 02/25/17 16:32 Ur Barbiturates Screen NEGATIVE (NEGATIVE) 02/25/17 16:15 Ur Tricyclics Screen NEGATIVE (NEGATIVE) 02/25/17 16:15 Ur Phencyclidine Scrn NEGATIVE (NEGATIVE) 02/25/17 16:15 Ur Amphetamine Screen NEGATIVE (NEGATIVE) 02/25/17 16:15 U Methamphetamines Scrn NEGATIVE (NEGATIVE) 02/25/17 16:15 U Benzodiazepines Scrn NEGATIVE (NEGATIVE) 02/25/17 16:15 Urine Cocaine Screen NEGATIVE (NEGATIVE) 02/25/17 16:15 U Cannabinoids Screen POSITIVE (NEGATIVE) H 02/25/17 16:15 Ethyl Alcohol < 5.0 mg/dL 02/25/17 09:05 Serum Ketones MODERATE (NEGATIVE) H 02/25/17 16:32 - Diagnostic Imaging Results Diagnostic Imaging Results: positive: Final report reviewed Diagnostic Imaging Results Comments: CT head Impression: No acute abnormality or interval change. - EKG Results EKG Interpreted Independently: Yes EKG Findings: Sinus rhythm without ST elevations Core Measures - Anticipated LOS I expect patient to be DC'd or transferred within 96 hours.: Yes - DVT/VTE - Prophylaxis VTE/DVT Prophylaxis med ordered at admit?: Yes
[2017-02-26] MEDS ORDERED: SODIUM CHLORIDE 0.9% 250 ML IV ONE (08:46)
[2017-02-26] MEDS: POTASSIUM CHLOR 10 MEQ/100 ML 10 MEQ/100 ML BAG IV SCH ×4 (08:53→12:56)
--- NOTE | 2017-02-26 08:57 | Ultrasound Report ---
EXAM: ABDOMEN ULTRASOUND EXAM DATE: 02/26/2017 08:34 AM. CLINICAL HISTORY: Abdominal pain, elevated bili. COMPARISON: None. TECHNIQUE: Real-time scanning was performed with static images obtained. FINDINGS: Liver: Mildly inhomogeneous, increased echogenicity, suggesting diffuse fatty infiltration. No focal lesion. Liver measures 21.5 cm craniocaudally. Main portal vein flow: Hepatopetal. Gallbladder: Gallbladder wall thickness is normal.No gallstones.Sonographic Huntley sign is absent, pe r technologist's notes. Biliary System: Common bile duct measures 4.2 mm. No intrahepatic ductal dilatation. Pancreas: Visualized portion is unremarkable. Kidneys: Right: 12.5 cm longitudinally. Normal echotexture.No hydronephrosis.No contour-deforming mass.No calc ulus. Left: 12.9 cm longitudinally. Normal echotexture.No hydronephrosis.No contour-deforming mass.No calcu pipo. Spleen: 8.0 cm. No focal lesion. Aorta and Inferior Vena Cava: Unremarkable. IMPRESSION: 1. Enlarged, fatty liver. 2. No cholelithiasis or supporting ultrasound evidence of acute cholecystitis. 3. Common bile duct is normal caliber. [facility] Referring Provider Line: [phone] SITE ID: [id number]
[2017-02-26] MEDS ORDERED: THIAMINE INJ 100 MG, FOLIC ACID INJ 1 MG in SODIUM CHLORIDE 0.9% 100ML 100 ML IV SCH (09:00)
[2017-02-26] MEDS ORDERED: ENOXAPARIN 40 MG/0.4 ML SYRINGE SUBQ SCH (09:00)
[2017-02-26] MEDS ORDERED: MULTIVITAMIN 10 ML in SODIUM CHLORIDE 0.9% 1,000 ML IV SCH (09:00)
[2017-02-26] MEDS ORDERED: POLYETHYLENE GLYCOL 3350 17 GM PACKET PO SCH (09:00)
[2017-02-26 09:48] LABS: HB2 TOTAL 14.4 g/dL; HEMOGLOBIN A1C 0.41 g/dL; HEMOGLOBIN A1C % 4.8 % (4.6-6.2)
[2017-02-26 09:52] LABS: FOLATE 8.51 ng/mL (5.90 - >24.8)
[2017-02-26] MEDS: NEUTRA-PHOS 250 MG TABLET PO SCH ×3 (10:47→17:22)
[2017-02-26] MEDS: FAMOTIDINE 20 MG/50 ML 50 ML IV SCH (10:50)
[2017-02-26] MEDS: GI COCKTAIL 120 ML BOTTLE PO SCH (10:51)
[2017-02-26] MEDS ORDERED: SODIUM CHLORIDE 0.9% 1,000 ML IV ONE (13:57)
--- NOTE | 2017-02-26 15:20 | Discharge Plan ---
Discharge Plan Disposition: 01 Home, Self Care Condition: Stable Prescriptions: chlordiazePOXIDE [Librium] 25 mg PO TID #60 capsule Pantoprazole [Protonix] 40 mg PO DAILYWM #30 tablet Diet: Regular Activity Restrictions: Activity as Tolerated Shower Restrictions: No Driving Restrictions: No Assistance Devices: Walker Weight Bearing: Full Weight Additional Instructions or Follow Up instructions: You presented with alcohol withdrawal. On presentation you appear to be dehydrated and had electrolyte abnormalities. We gave you IV fluids and replaced her electrolytes. You were weak and we had physical therapy assess you you did well with walking using a walker. Your withdrawals appear to be controlled and you are stable for discharge. I am prescribing you Librium which she should take 3 times a day for the next 4 days and then 2 times a day for 3 days after that and then as needed for your alcohol withdrawal. You are also being prescribed Protonix which should help with your acid reflux. Please refrain from drinking alcohol while using Librium. No Smoking: If you smoke, Please STOP! Call for help. Follow-up with: Provider,Other [Primary Care Provider] -
[2017-02-26 15:47] VITALS: BP 128/88
--- NOTE | 2017-02-26 16:32 | DISCHARGE SUMMARY ---
Discharge Summary Admit Date: 02/25/17 Discharge Date: 02/26/17 Discharging Provider: Jamie Mckeon MD Code Status: Attempt Resuscitation Condition at Discharge: Stable Discharge Disposition: 01 Home, Self Care - DIAGNOSES Admission Diagnoses: 1. Alcohol withdrawal 2. Alcoholic ketoacidosis 3. Hyponatremia 4. Elevated LFTs 5. Hyperglycemia 6. Tobacco abuse Discharge Diagnoses with Status of Each Condition: 1. Alcohol withdrawal: Stable 2. Alcoholic ketoacidosis: Resolved 3. Hyponatremia: Stable 4. Fatty liver disease: Stable 5. Hyperglycemia: Improved 6. Tobacco abuse: Stable 7. Hypokalemia 8. Hypophosphatemia 9. Hypomagnesemia 10. Alcoholic Gastritis - HPI History of Present Illness: Patient is a 56-year-old gentleman with a past medical history significant for alcohol abuse status post alcohol rehab 1-1/2 years ago who is a current daily drinker and presents to the emergency department with a chief complaint of vomiting. The patient states that he has been having episodes of vomiting for the last 2 months however symptoms became significantly worse over the last week. He states that there is a garbage can next to him on the couch which is filled with bile over the last week. The patient states that over the last couple of days he has been coughing up phlegm and eventually vomits. He also complains of acid reflux. The patient states that he stopped drinking 2 days ago. He states that prior to that he was drinking about a half 1/5 of whiskey every night. The patient's also appear tremulous in the emergency department and states that his tremors have been ongoing for the last 3 months. He does state however that the tremors have been worse the last few days and that he has been having a hard time sleeping because he feels agitated and gets up every couple of hours. The patient also admits to generalized weakness he states he is so weak that he is barely able to stand up from his couch at home. The patient states that today he came into the ER because his girlfriend became concerned when she saw how much vomit was in the garbage can and due to the fact the patient was so weak. Today the patient has been having difficulty with his balance and has barely been able to walk without falling. He states that he has been holding onto the gray to keep himself up. The patient does have a history of alcohol withdrawal seizure in June 2016. Patient denies any fevers, chills, recent unintentional weight loss, changes in his appetite, headaches, night sweats, nasal congestion, sore throat, difficulty swallowing, neck pain, chest pain, shortness of air, orthopnea, PND, abdominal pain, diarrhea, constipation, urinary urgency, urinary frequency, dysuria, joint swelling, joint pain, muscle aches, back pain, neck stiffness, or any focal neurologic deficits. On presentation to the emergency department the patient was afebrile but he was tachycardic and hypertensive. The patient was also very tremulous and appeared to be in alcohol withdrawal. The patient underwent lab work which did reveal that he was hyponatremic with a significant anion gap metabolic acidosis. The patient's serum was positive for ketones concerning for alcoholic ketoacidosis. The patient also had a total bili of 4.0 with elevated AST and ALT. The patient did undergo a CT of his head which revealed no acute abnormality or interval change. The patient did appear to be confused and while in the emergency department did mention some visual hallucinations. The patient was given several doses of Ativan and IV fluids and after spending nearly 7 hours in the emergency department it was determined that the patient needed to be placed in observation for further treatment of alcohol withdrawal and his alcoholic ketoacidosis. - HOSPITAL COURSE Hospital Course: The patient was laced observation for alcohol withdrawal with tremors, nausea and vomiting. The patient was also found to have alcoholic ketoacidosis. Patient was treated with IV fluids, thiamine, folate, IV magnesium and multivitamin. The patient was placed on CIWA protocol and was given Ativan as needed. The patient had significant improvement over the course of the observation stay. The patient's alcohol withdrawal score was 0-1 by the time of discharge. The patient did appear to be significantly deconditioned and weak but he was seen by our physical therapist and was able to ambulate with a walker. The patient initially appeared to be unstable with his gait but was improved by the time of discharge. The patient did undergo an abdominal ultrasound which revealed fatty liver disease. We did have a long discussion with the patient and his girlfriend about the risks the patient puts himself at if he continues to drink. The patient was not interested in going to alcohol rehab straight from the hospital but was given information and did state he would think about it in the future. The patient also underwent counseling for tobacco abuse. The patient was discharged home with his girlfriend. During the hospitalization the patient did have electrolyte abnormalities including hypokalemia, hypophosphatemia and hypomagnesemia all of which were replaced. The patient was discharged in stable condition and was given a prescription for Librium to help with alcohol withdrawal. - ALLERGIES Allergies/Adverse Reactions: Allergies Allergy/AdvReac Type Severity Reaction Status Date / Time No Known Drug Allergies Allergy Verified 02/25/17 21:55 - MEDICATIONS Home Medications: Ambulatory Orders Medication Instructions Recorded Confirmed Pantoprazole [Protonix] 40 mg PO DAILYWM #30 tablet 02/26/17 chlordiazePOXIDE [Librium] 25 mg PO TID #60 capsule 02/26/17 - PHYSICAL EXAM AT DISCHARGE General Appearance: positive: Alert, Other (Patient appears quite weak and is tremulous.) Eyes Bilateral: positive: Normal inspection, PERRL, EOMI, No lid inflammation, Conjunctivae nml, Other (Patient has mild scleral icterus.) ENT: positive: ENT inspection nml, Pharynx nml, Dry mucous membranes. negative : Purulent nasal drainage, Pharyngeal erythema, Oral lesions Neck: positive: Nml inspection, Thyroid nml, No JVD, Trachea midline. negative : Thyromegaly, Lymphadenopathy (R), Lymphadenopathy (L), Carotid bruit, Tracheal deviation Respiratory: positive: Chest non-tender, No respiratory distress, Breath sounds nml. negative: Wheezes, Rales, Rhonchi Cardiovascular: positive: Regular rate & rhythm, No murmur, No gallop Peripheral Pulses: positive: 2+ Abdomen: positive: Non-tender, No organomegaly, Nml bowel sounds, No distention. negative: Guarding, Rebound, Hepatomegaly Back: positive: Nml inspection. negative: CVA tenderness (R), CVA tenderness (L ) Skin: positive: Color nml, No rash, Warm, Other (Face appears flushed) Extremities: positive: Non-tender, Full ROM, Nml appearance, No pedal edema Neurologic/Psychiatric: positive: Oriented x3, CN's nml (2-12), Sensation nml, Mood/affect nml, Weakness (Patient had generalized weakness) - LABS Result Diagrams: 02/26/17 05:00 02/26/17 05:00 Other Lab Results: Laboratory Results WBC 5.9 x10^3/uL (4.8-10.8) 02/26/17 05:00 RBC 3.37 10^6/uL (4.70-6.10) L 02/26/17 05:00 Hgb 12.1 g/dL (14.0-18.0) L 02/26/17 05:00 Hct 34.1 % (42.0-52.0) L 02/26/17 05:00 MCV 101.1 fL (80.0-94.0) H 02/26/17 05:00 MCH 35.9 pg (27.0-31.0) H 02/26/17 05:00 MCHC 35.5 g/dL (32.0-36.0) 02/26/17 05:00 RDW 15.5 % (12.0-15.0) H 02/26/17 05:00 Plt Count 144 10^3/uL (130-450) 02/26/17 05:00 MPV 8.2 fL (7.4-11.4) 02/26/17 05:00 Neut # 4.2 10^3/uL (1.5-6.6) 02/26/17 05:00 Lymph # 0.9 10^3/uL (1.5-3.5) L 02/26/17 05:00 [place] # 0.7 10^3/uL (0.0-1.0) 02/26/17 05:00 Eos # 0.0 10^3/uL (0.0-0.7) 02/26/17 05:00 Baso # 0.0 10^3/uL (0.0-0.1) 02/26/17 05:00 Absolute Nucleated RBC 0.02 x10^3/uL 02/26/17 05:00 Nucleated RBC % 0.4 /100WBC 02/26/17 05:00 PT 12.4 secs (9.9-12.6) 02/26/17 05:00 INR 1.1 (0.8-1.2) 02/26/17 05:00 Sodium 131 mmol/L (135-145) L 02/26/17 05:00 Potassium 3.3 mmol/L (3.5-5.0) L 02/26/17 05:00 Chloride 97 mmol/L (101-111) L 02/26/17 05:00 Carbon Dioxide 22 mmol/L (21-32) 02/26/17 05:00 Anion Gap 12.0 (6-13) 02/26/17 05:00 BUN 15 mg/dL (6-20) 02/26/17 05:00 Creatinine 0.5 mg/dL (0.6-1.2) L 02/26/17 05:00 Estimated GFR (MDRD) 173 (>89) 02/26/17 05:00 Glucose 115 mg/dL (70-100) H 02/26/17 05:00 Glycated Hemoglobin 4.8 % (4.6-6.2) 02/26/17 09:00 Estim Average Glucose 91 (70-100) 02/26/17 09:00 Lactic Acid 1.4 mmol/L (0.5-2.2) 02/25/17 15:15 Calcium 9.1 mg/dL (8.5-10.3) 02/26/17 05:00 Phosphorus 1.1 mg/dL (2.5-4.6) L 02/26/17 05:00 Magnesium 1.2 mg/dL (1.7-2.8) L 02/26/17 05:00 Total Bilirubin 3.2 mg/dL (0.2-1.0) H 02/26/17 05:00 AST 64 IU/L (10-42) H 02/26/17 05:00 ALT 51 IU/L (10-60) 02/26/17 05:00 Alkaline Phosphatase 53 IU/L (42-121) 02/26/17 05:00 Total Creatine Kinase 75 IU/L (22-269) 02/26/17 13:47 Troponin I < 0.04 ng/mL (<0.49) 02/25/17 09:05 Total Protein 6.4 g/dL (6.7-8.2) L 02/26/17 05:00 Albumin 3.9 g/dL (3.2-5.5) 02/26/17 05:00 Globulin 2.5 g/dL (2.1-4.2) 02/26/17 05:00 Albumin/Globulin Ratio 1.6 (1.0-2.2) 02/26/17 05:00 Lipase 58 U/L (22-51) H 02/25/17 09:05 Vitamin B12 606 pg/mL (180-914) 02/26/17 08:55 Folate 8.51 ng/mL (5.90 - >24.8) 02/26/17 08:55 Urine Color DARK YELLOW 02/25/17 16:15 Urine Clarity HAZY (CLEAR) 02/25/17 16:15 Urine pH 6.0 PH (5.0-7.5) 02/25/17 16:15 Ur Specific [place] >=1.030 (1.002-1.030) H 02/25/17 16:15 Urine Protein 30 mg/dL (NEGATIVE) H 02/25/17 16:15 Urine Glucose (UA) NEGATIVE mg/dL (NEGATIVE) 02/25/17 16:15 Urine Ketones >=80 mg/dL (NEGATIVE) H 02/25/17 16:15 Urine Occult Blood SMALL (NEGATIVE) H 02/25/17 16:15 Urine Nitrite NEGATIVE (NEGATIVE) 02/25/17 16:15 Urine Bilirubin MODERATE (NEGATIVE) H 02/25/17 16:15 Urine Urobilinogen 4 E.U./dL (NORMAL) H 02/25/17 16:15 Ur Leukocyte Esterase NEGATIVE (NEGATIVE) 02/25/17 16:15 Urine RBC TNTC /HPF (0-5) H 02/25/17 16:15 Urine WBC 4-5 /HPF (0-3) 02/25/17 16:15 Ur Squamous Epith Cells FEW Squamous (<= Few) 02/25/17 16:15 Urine Bacteria Few /HPF (None Seen) 02/25/17 16:15 Urine Casts 6-10 Hyaline Casts /LPF 02/25/17 16:15 Urine Mucus Moderate Strands 02/25/17 16:15 Ur Microscopic Review INDICATED 02/25/17 16:15 Urine Culture Comments NOT INDICATED 02/25/17 16:15 Salicylates < 6.0 mg/dL 02/25/17 16:32 Urine Opiates Screen POSITIVE (NEGATIVE) H 02/25/17 16:15 Ur Oxycodone Screen NEGATIVE (NEGATIVE) 02/25/17 16:15 Urine Methadone Screen NEGATIVE (NEGATIVE) 02/25/17 16:15 Ur Propoxyphene Screen NEGATIVE (NEGATIVE) 02/25/17 16:15 Acetaminophen < 10 ug/mL (10-30) L 02/25/17 16:32 Ur Barbiturates Screen NEGATIVE (NEGATIVE) 02/25/17 16:15 Ur Tricyclics Screen NEGATIVE (NEGATIVE) 02/25/17 16:15 Ur Phencyclidine Scrn NEGATIVE (NEGATIVE) 02/25/17 16:15 Ur Amphetamine Screen NEGATIVE (NEGATIVE) 02/25/17 16:15 U Methamphetamines Scrn NEGATIVE (NEGATIVE) 02/25/17 16:15 U Benzodiazepines Scrn NEGATIVE (NEGATIVE) 02/25/17 16:15 Urine Cocaine Screen NEGATIVE (NEGATIVE) 02/25/17 16:15 U Cannabinoids Screen POSITIVE (NEGATIVE) H 02/25/17 16:15 Ethyl Alcohol < 5.0 mg/dL 02/25/17 09:05 Serum Ketones MODERATE (NEGATIVE) H 02/25/17 16:32 - DIAGNOSTIC IMAGING Diagnostic Imaging Results: Final report reviewed Diagnostic Imaging Results Comments: CT head Impression: 1. No acute abnormality or interval change Abdominal ultrasound Impression: 1. Enlarged fatty liver 2. No cholelithiasis or supporting ultrasound evidence of acute cholecystitis 3. Common bile duct is normal caliber. - FOLLOW UP Follow Up: Patient will be discharged home with his girlfriend after being hospitalized for alcohol withdrawal. The patient appeared to be stable at the time of discharge as his alcohol withdrawal score was minimal. The patient was prescribed Librium to help with alcohol withdrawal. The patient was also given information about alcohol rehab programs. The patient also appear to be having some acid reflux or alcohol gastritis/esophagitis and was prescribed Protonix. - TIME SPENT Time Spent in Discharge (Minutes): 35
== END 2017-02-26 18:00 | disposition home or self-care (01) ==
LOC: ED 08:12 → OBS 16:11
PROVIDERS: ADMIT Internal Medicine; ATTEND Internal Medicine
DX: F10.239 Alcohol dependence with withdrawal, unspecified (principal); T51.0X1A Toxic effect of ethanol, accidental (unintentional), initial encounter; E87.2 Acidosis; E87.1 Hypo-osmolality and hyponatremia; K76.0 Fatty (change of) liver, not elsewhere classified; R73.9 Hyperglycemia, unspecified; E86.0 Dehydration; E87.6 Hypokalemia; E83.39 Other disorders of phosphorus metabolism; E83.42 Hypomagnesemia; K29.20 Alcoholic gastritis without bleeding; G25.2 Other specified forms of tremor; R17 Unspecified jaundice; R74.0 Nonspecific elevation of levels of transaminase and lactic acid dehydrogenase [LDH]; F17.210 Nicotine dependence, cigarettes, uncomplicated
CPT/HCPCS: 36415; 51702; 70450; 76700; 80053; 80306; 80307; 80320; 80329; 81001; 82009; 82550; 82607; 82746; 83036; 83605; 83690; 83735; 84100; 84484; 85025; 85610; 93005; 96361; 96365; 96366; 96367; 96368; 96372; 96375; 96376; 97161; 99284; 99285; A9270; G0378; J1170; J1650; J2060; J3411; 81003; 87086

== ENCOUNTER 2017-04-27 07:33 | Outpatient (CLI) | payer MEDICAID ==
[2017-04-27 13:29] LABS: ALBUMIN 4.1 g/dL (3.2-5.5); ALBUMIN/GLOBULIN RATIO 1.5 (1.0-2.2); ALKALINE PHOSPHATASE 52 IU/L (42-121); ALT ALANINE AMINOTRANSFERASE 23 IU/L (10-60); AST ASPARTATE AMINOTRANSFERASE 34 IU/L (10-42); BASOPHILS # (AUTO) 0.1 10^3/uL (0.0-0.1); BASOPHILS % (AUTO) 1.1 %; BILIRUBIN,TOTAL 0.7 mg/dL (0.2-1.0); BUN - BLOOD UREA NITROGEN 6 mg/dL (6-20); CALCIUM 8.9 mg/dL (8.5-10.3); CARBON DIOXIDE - CO2 25 mmol/L (21-32); CHLORIDE 107 mmol/L (101-111); CHOL/HDL RATIO 3.8 (<5.0); CHOLESTEROL 245 mg/dL; CREATININE 0.7 mg/dL (0.6-1.2); EOSINOPHILS # (AUTO) 0.3 10^3/uL (0.0-0.7); EOSINOPHILS % (AUTO) 6.5 %; GFR - MDRD 118 (>89); GLUCOSE 89 mg/dL (70-100); HDL CHOLESTEROL 65 mg/dL; HGB - HEMOGLOBIN 15.9 g/dL (14.0-18.0); LDL CHOLESTEROL,CALCULATED 146 mg/dL; LDL/HDL RATIO 2.2 (<3.6); LYMPHOCYTES # (AUTO) 2.5 10^3/uL (1.5-3.5); LYMPHOCYTES % (AUTO) 51.8 %; MEAN CORPUSCULAR HEMOGLOBIN 32.5 pg (27.0-31.0); MEAN CORPUSCULAR HGB CONC 33.7 g/dL (32.0-36.0); MEAN CORPUSCULAR VOLUME 96.4 fL (80.0-94.0); MEAN PLATELET VOLUME 8.4 fL (7.4-11.4); MONOCYTES # (AUTO) 0.3 10^3/uL (0.0-1.0); MONOCYTES % (AUTO) 6.2 %; NEUTROPHILS # (AUTO) 1.7 10^3/uL (1.5-6.6); NEUTROPHILS % (AUTO) 34.4 %; PLT - PLATELET COUNT 275 10^3/uL (130-450); RED CELL DISTRIBUTION WIDTH 13.6 % (12.0-15.0); SODIUM 142 mmol/L (135-145); TOTAL PROTEIN 6.8 g/dL (6.7-8.2); VLDL CHOLESTEROL 34 mg/dL; WHITE BLOOD COUNT 4.9 x10^3/uL (4.8-10.8)
== END 2017-04-27 07:34 | disposition home or self-care (01) ==
LOC: LAB.WCP 07:33
PROVIDERS: ATTEND Family Medicine
DX: D75.89 Other specified diseases of blood and blood-forming organs (principal); R79.89 Other specified abnormal findings of blood chemistry; R56.9 Unspecified convulsions
CPT/HCPCS: 36415; 80053; 80061; 83721; 84443; 85025

== ENCOUNTER 2017-07-26 10:27 | Day surgery (SDC) | payer MEDICAID ==
[2017-07-26] MEDS ORDERED: LACTATED RINGERS 1,000 ML IV ONE (11:03)
[2017-07-26] MEDS ORDERED: fentaNYL 250 MCG/5 ML VIAL IVP ONE (11:24)
[2017-07-26] MEDS ORDERED: MIDAZOLAM 2 MG/2 ML VIAL IVP ONE (11:24)
[2017-07-26 12:23] VITALS: BP 116/62
== END 2017-07-26 10:28 | disposition home or self-care (01) ==
LOC: SDS 10:27
PROVIDERS: ATTEND Surgery
PROC: 0DBL8ZX Excision of Transverse Colon, Via Natural or Artificial Opening Endoscopic, Diagnostic (ICD-10-PCS; 2017-07-26)
PROC: 0DBK8ZX Excision of Ascending Colon, Via Natural or Artificial Opening Endoscopic, Diagnostic (ICD-10-PCS; principal; 2017-07-26 11:30)
DX: Z12.11 Encounter for screening for malignant neoplasm of colon (principal); Z80.0 Family history of malignant neoplasm of digestive organs; D12.2 Benign neoplasm of ascending colon; D12.3 Benign neoplasm of transverse colon; K64.8 Other hemorrhoids; F17.210 Nicotine dependence, cigarettes, uncomplicated
CPT/HCPCS: 45384; J3010; J7120; 88305

== ENCOUNTER 2017-09-13 09:48 | Outpatient (CLI) | payer MEDICAID ==
[2017-09-13 12:42] LABS: BASOPHILS % (AUTO) 0.3 %; EOSINOPHILS # (AUTO) 0.2 10^3/uL (0.0-0.7); EOSINOPHILS % (AUTO) 1.8 %; HGB - HEMOGLOBIN 15.4 g/dL (14.0-18.0); LYMPHOCYTES % (AUTO) 18.1 %; MEAN CORPUSCULAR HEMOGLOBIN 32.4 pg (27.0-31.0); MEAN CORPUSCULAR HGB CONC 34.2 g/dL (32.0-36.0); MEAN CORPUSCULAR VOLUME 94.8 fL (80.0-94.0); MEAN PLATELET VOLUME 8.9 fL (7.4-11.4); MONOCYTES # (AUTO) 0.7 10^3/uL (0.0-1.0); MONOCYTES % (AUTO) 6.2 %; NEUTROPHILS # (AUTO) 8.3 10^3/uL (1.5-6.6); NEUTROPHILS % (AUTO) 73.6 %; PLT - PLATELET COUNT 280 10^3/uL (130-450); RED BLOOD COUNT 4.74 10^6/uL (4.70-6.10); RED CELL DISTRIBUTION WIDTH 13.6 % (12.0-15.0); WHITE BLOOD COUNT 11.2 x10^3/uL (4.8-10.8)
[2017-09-13 13:08] LABS: ALBUMIN 4.3 g/dL (3.2-5.5); ALBUMIN/GLOBULIN RATIO 1.4 (1.0-2.2); BILIRUBIN,TOTAL 0.8 mg/dL (0.2-1.0); CALCIUM 9.3 mg/dL (8.5-10.3); CREATININE 0.8 mg/dL (0.6-1.2); TOTAL PROTEIN 7.3 g/dL (6.7-8.2)
== END 2017-09-13 09:49 ==
LOC: LAB.WCP 09:48
PROVIDERS: ATTEND Family Medicine
DX: R79.89 Other specified abnormal findings of blood chemistry (principal); D75.89 Other specified diseases of blood and blood-forming organs; F10.20 Alcohol dependence, uncomplicated
CPT/HCPCS: 36415; 80053; 85025

== ENCOUNTER 2018-05-16 12:46 | Outpatient (CLI) | payer MEDICAID ==
[2018-05-16 19:10] LABS: ALBUMIN 4.5 g/dL (3.2-5.5); ALBUMIN/GLOBULIN RATIO 1.6 (1.0-2.2); BILIRUBIN,TOTAL 0.7 mg/dL (0.2-1.0); CALCIUM 8.6 mg/dL (8.5-10.3); CREATININE 0.7 mg/dL (0.6-1.2); TOTAL PROTEIN 7.3 g/dL (6.7-8.2)
[2018-05-16 19:16] LABS: BASOPHILS % (AUTO) 0.9 %; EOSINOPHILS # (AUTO) 0.1 10^3/uL (0.0-0.7); EOSINOPHILS % (AUTO) 2.1 %; LYMPHOCYTES # (AUTO) 1.8 10^3/uL (1.5-3.5); LYMPHOCYTES % (AUTO) 45.9 %; MEAN CORPUSCULAR HEMOGLOBIN 34.2 pg (27.0-31.0); MEAN CORPUSCULAR HGB CONC 33.9 g/dL (32.0-36.0); MEAN CORPUSCULAR VOLUME 100.8 fL (80.0-94.0); MEAN PLATELET VOLUME 8.2 fL (7.4-11.4); MONOCYTES # (AUTO) 0.3 10^3/uL (0.0-1.0); MONOCYTES % (AUTO) 7.2 %; NEUTROPHILS # (AUTO) 1.7 10^3/uL (1.5-6.6); NEUTROPHILS % (AUTO) 43.9 %; PLT - PLATELET COUNT 209 10^3/uL (130-450); RED CELL DISTRIBUTION WIDTH 14.5 % (12.0-15.0); WHITE BLOOD COUNT 3.8 x10^3/uL (4.8-10.8)
[2018-05-16 19:35] LABS: FOLATE 5.45 ng/mL (5.90 - >24.8)
== END 2018-05-16 12:47 | disposition home or self-care (01) ==
LOC: LAB.WCP 12:46
PROVIDERS: ATTEND Family Medicine
DX: F10.20 Alcohol dependence, uncomplicated (principal); D75.89 Other specified diseases of blood and blood-forming organs
CPT/HCPCS: 36415; 80053; 82607; 82746; 84443; 85025

== ENCOUNTER 2019-01-29 07:44 | Outpatient (CLI) | payer MEDICAID | END 2019-01-29 07:45 | disposition critical access hospital (66) | LOC: EMS 07:44 | PROVIDERS: ATTEND Surgery | DX: R56.9 Unspecified convulsions (principal) | CPT/HCPCS: A0425; A0429; A0999 ==

== ENCOUNTER 2019-01-29 08:00 | Emergency (ER) | payer MEDICAID ==
[2019-01-29] MEDS ORDERED: SODIUM CHLORIDE 0.9% 1,000 ML IV ONE (08:07)
[2019-01-29] MEDS ORDERED: TETANUS/DIPHTHERIA/PERTUSSIS 0.5 ML SYRINGE IM ONE (08:07)
--- NOTE | 2019-01-29 08:11 | ED Physician Documentation ---
PD HPI SEIZURE - Stated complaint Stated Complaint: SZ - Chief complaint Chief Complaint: Neuro - History obtained from History obtained from: Patient, EMS - History of Present Illness Timing - onset: Other (just prior to arrival) Witnessed: Witnessed Number of seizures: Single Description of seizure activity: Generalized Injury during seizure: Bit tongue Severity Comments: moderate, lasting 5 minutes Associated symptoms: No: None History of seizures: Prior EtOH wdrawal sz, Other (hx of drinking 1/5th of hard liquour per day) Contributing factors: EtOH withdrawal, Other (stopped drinking 2 days ago cold turkey) Treatment [employer]: Other (none) Similar symptoms before: Diagnosis (hx of ETOH withdrawal seizure) Recently seen: Not recently seen Review of Systems Ten Systems: 10 systems reviewed and negative Constitutional: denies: Fever Eyes: reports: Reviewed and negative Ears: reports: Reviewed and negative Throat: reports: Reviewed and negative Cardiac: denies: Chest pain / pressure, Palpitations Respiratory: denies: Dyspnea, Cough GI: denies: Abdominal Pain, Nausea, Vomiting Skin: reports: Reviewed and negative Musculoskeletal: reports: Reviewed and negative Neurologic: reports: Reviewed and negative Endocrine: reports: Reviewed and negative Immunocompromised: reports: Reviewed and negative PD PAST MEDICAL HISTORY - Past Medical History Cardiovascular: None Respiratory: None Endocrine/Autoimmune: None Psych: Other - Past Surgical History Past Surgical History: No - Present Medications Home Medications: Ambulatory Orders Medication Instructions Recorded Confirmed Krill/[place]-3/Dha/Epa/Lipids 1 each PO DAILY 18 07/26/17 [Krill Oil 350 mg Softgel] Multivitamin [Multiple Vitamins] 1 each PO DAILY 07/26/17 07/26/17 chlordiazePOXIDE [Librium] 50 mg PO Q6H 6 Days #30 capsule 01/29/19 - Allergies Allergies/Adverse Reactions: Allergies Allergy/AdvReac Type Severity Reaction Status Date / Time No Known Drug Allergies Allergy Verified 01/29/19 08:08 - Social History Does the pt smoke?: Yes Smoking Status: Former smoker Does the pt drink ETOH?: Yes Does the pt have substance abuse?: No - Immunizations Immunizations are current?: Yes - POLST Patient has POLST: No POLST Status: Full Code PD ED PE NORMAL - General General: Alert and oriented X 3, No acute distress, Well developed/nourished - HEENT HEENT: Atraumatic, PERRL, EOMI, Moist mucous membranes - Neck Neck: Supple, no meningeal sign, No JVD - Cardiac Cardiac: No murmur, No gallop, No rub, Strong equal pulses - Respiratory Respiratory: No respiratory distress, Clear bilaterally - Abdomen Abdomen: Soft, Non tender, Non distended - Male Male : Deferred - Rectal Rectal: Deferred - Derm Derm: Normal color, Warm and dry, No rash - Extremities Extremities: No deformity, No edema - Neuro Neuro: Alert and oriented X 3 Eye Opening: Spontaneous Motor: Obeys Commands Verbal: Oriented GCS Score: 15 - Psych Psych: Normal mood, Normal affect PD ED PE EXPANDED - HEENT HEENT: Other (Right tongue laceration, small and ecchymosis) - Cardiac Cardiac: Tachy. No: JVD present Results - Vitals Vitals: Vital Signs - 24 hr 01/29/19 01/29/19 01/29/19 08:01 10:00 12:00 Temperature 36.6 C Heart Rate 95 72 80 Respiratory 21 14 13 Rate Blood Pressure 156/106 H 137/95 H 134/91 H O2 Saturation 96 99 98 Oxygen O2 Source [With Activity] Room air O2 Source Room air - Labs Labs: Laboratory Tests 01/29/19 01/29/19 01/29/19 08:15 08:15 12:37 WBC 6.8 RBC 4.61 L Hgb 16.3 Hct 44.9 MCV 97.4 H MCH 35.4 H MCHC 36.3 H RDW 12.6 Plt Count 156 MPV 10.0 Neut # (Auto) 4.7 Lymph # (Auto) 1.5 [place] # (Auto) 0.5 Eos # (Auto) 0.1 Baso # (Auto) 0.0 Absolute Nucleated RBC 0.00 Nucleated RBC % 0.0 Sodium 135 137 Potassium 3.1 L 3.8 Chloride 97 L 102 Carbon Dioxide 21 26 Anion Gap 17.0 H 9.0 BUN 17 14 Creatinine 0.9 0.7 Estimated GFR (MDRD) 87 L 117 Glucose 193 H 98 Calcium 9.3 8.8 Magnesium 1.3 L 1.8 Total Bilirubin 1.7 H AST 46 H ALT 36 Alkaline Phosphatase 52 Total Protein 6.9 Albumin 4.2 Globulin 2.7 Albumin/Globulin Ratio 1.6 Lipase 32 PD MEDICAL DECISION MAKING - ED course Complexity details: reviewed old records, reviewed results, re-evaluated patient, considered differential, d/w patient, d/w family ED course: ddx- alcohol withdrawal seizure, electrolyte abnormality, dehydration, toxic induced seizure 58 y/o M with hx of chronic alcohol abuse, stopped cold turkey 2 days ago and then had a few minutes of an apparent seizure at home witnessed by his girlfriend. No major injuries, he did not fall. He was sitting when this occurred. He did bite his tongue, tetanus was updated here. No indication for repair as it is mainly a bruise. He has no other tenderness or injuries on exam. He is not altered, is awake, alert, not delirious not currently tremulous. He was given oral librium for his alcohol withdrawal and obtained labs. Significant electrolyte abnormalities including hypomagnesemia and hypokalemia were repleted here. He was dehydrated and this improved with fluids. He was monitored without incident. He was given another dose of librium at 6 hours. I discussed with his girlfriend options for rehabilitation but they are already working on this and he has an appointment tomorrow morning for placement. I think it is reasonable to start him on librium and have him f/u as outpt with return precautions if worsening withdrawal symptoms, recurrent seizures or change in mental status occur. Pt and family agree and understand the plan of care. Departure - Departure Disposition: 01 Home, Self Care Clinical Impression: Alcohol withdrawal seizure, Hypomagnesemia, Hypokalemia Condition: Stable Instructions: ED Seizure Alcohol Withdrawal Follow-Up: Vargas Jose MD [Primary Care Provider] - As Needed Prescriptions: chlordiazePOXIDE [Librium] 50 mg PO Q6H 6 Days #30 capsule Comments: Your lab today showed low potassium and magnesium due to your poor nutrition and alcohol abuse. This improved with our treatments here today and is now normal. You appear to have had an alcohol withdrawal seizure today. You were given librium today for your alcohol withdrawal. You need to continue this at home 2 tablets every 6 to 8 hours for 2 days then 1-2 tablets depending on your symptoms every 8 hours for 2 days and then 1 tablet every 8 hours for 2 days. If you have worsening symptoms or recurrent seizure activity return to the ED. Otherwise contact your doctors to arrange alcohol rehab. Discharge Date/Time: 01/29/19 13:19
[2019-01-29] MEDS ORDERED: chlordiazePOXIDE 25 MG CAPSULE PO STA ×2 (08:13→13:11)
[2019-01-29 08:30] LABS: BASOPHILS % (AUTO) 0.3 %; EOSINOPHILS # (AUTO) 0.1 10^3/uL (0.0-0.7); EOSINOPHILS % (AUTO) 1.8 %; HGB - HEMOGLOBIN 16.3 g/dL (14.0-18.0); LYMPHOCYTES # (AUTO) 1.5 10^3/uL (1.5-3.5); LYMPHOCYTES % (AUTO) 21.4 %; MEAN CORPUSCULAR HEMOGLOBIN 35.4 pg (27.0-31.0); MEAN CORPUSCULAR HGB CONC 36.3 g/dL (32.0-36.0); MEAN CORPUSCULAR VOLUME 97.4 fL (80.0-94.0); MONOCYTES # (AUTO) 0.5 10^3/uL (0.0-1.0); NEUTROPHILS # (AUTO) 4.7 10^3/uL (1.5-6.6); NEUTROPHILS % (AUTO) 68.2 %; PLT - PLATELET COUNT 156 10^3/uL (130-450); RED BLOOD COUNT 4.61 10^6/uL (4.70-6.10); RED CELL DISTRIBUTION WIDTH 12.6 % (12.0-15.0); WHITE BLOOD COUNT 6.8 x10^3/uL (4.8-10.8)
[2019-01-29 08:32] LABS: ALBUMIN 4.2 g/dL (3.2-5.5); ALBUMIN/GLOBULIN RATIO 1.6 (1.0-2.2); BILIRUBIN,TOTAL 1.7 mg/dL (0.2-1.0); CALCIUM 9.3 mg/dL (8.5-10.3); CREATININE 0.9 mg/dL (0.6-1.2); MAGNESIUM 1.3 mg/dL (1.7-2.8); TOTAL PROTEIN 6.9 g/dL (6.7-8.2)
[2019-01-29] MEDS ORDERED: MAGNESIUM SULFATE 1 GM/2 ML VIAL IVP STA (08:42)
[2019-01-29] MEDS ORDERED: POTASSIUM CHLORIDE 20 MEQ TABLET PO STA (08:42)
[2019-01-29] MEDS ORDERED: THIAMINE INJ 100 MG in SODIUM CHLORIDE 0.9% 50 ML IV STA (08:43)
[2019-01-29] MEDS ORDERED: POTASSIUM CHLOR 20 MEQ/100 ML 20 MEQ/100 ML BAG IV ONE (08:44)
[2019-01-29] MEDS ORDERED: MAGNESIUM SULFATE 2 GRAM 2 GM/50 ML BAG IV ONE (08:54)
[2019-01-29] MEDS ORDERED: MAGNESIUM SULFATE 2 GRAM 2 GM/50 ML BAG IV SCH (09:00)
[2019-01-29 12:03] VITALS: BP 134/91
[2019-01-29 12:50] LABS: CALCIUM 8.8 mg/dL (8.5-10.3); CREATININE 0.7 mg/dL (0.6-1.2); MAGNESIUM 1.8 mg/dL (1.7-2.8)
== END 2019-01-29 13:19 | disposition home or self-care (01) ==
LOC: EDUNIT# → ED 08:00
DX: F10.239 Alcohol dependence with withdrawal, unspecified (principal); R56.9 Unspecified convulsions; E83.42 Hypomagnesemia; E87.6 Hypokalemia; E86.0 Dehydration; S00.532A Contusion of oral cavity, initial encounter; X58.XXXA Exposure to other specified factors, initial encounter; Z23 Encounter for immunization; Z87.891 Personal history of nicotine dependence
CPT/HCPCS: 36415; 80048; 80053; 83690; 83735; 85025; 90471; 90715; 96361; 96365; 96368; 99284; A9270; J3411; J7040

== ENCOUNTER 2019-02-06 03:36 | Outpatient (CLI) | payer MEDICAID ==
[2019-02-06 18:57] LABS: BASOPHILS # (AUTO) 0.1 10^3/uL (0.0-0.1); BASOPHILS % (AUTO) 0.7 %; EOSINOPHILS # (AUTO) 0.2 10^3/uL (0.0-0.7); EOSINOPHILS % (AUTO) 1.7 %; HGB - HEMOGLOBIN 15.6 g/dL (14.0-18.0); LYMPHOCYTES # (AUTO) 1.9 10^3/uL (1.5-3.5); LYMPHOCYTES % (AUTO) 20.6 %; MEAN CORPUSCULAR HEMOGLOBIN 34.7 pg (27.0-31.0); MEAN CORPUSCULAR HGB CONC 34.1 g/dL (32.0-36.0); MEAN CORPUSCULAR VOLUME 101.8 fL (80.0-94.0); MEAN PLATELET VOLUME 10.1 fL (7.4-11.4); MONOCYTES # (AUTO) 0.8 10^3/uL (0.0-1.0); MONOCYTES % (AUTO) 8.9 %; NEUTROPHILS # (AUTO) 6.2 10^3/uL (1.5-6.6); NEUTROPHILS % (AUTO) 67.7 %; PLT - PLATELET COUNT 314 10^3/uL (130-450); RED BLOOD COUNT 4.49 10^6/uL (4.70-6.10); RED CELL DISTRIBUTION WIDTH 12.9 % (12.0-15.0); WHITE BLOOD COUNT 9.1 x10^3/uL (4.8-10.8)
[2019-02-06 19:14] LABS: ALBUMIN 4.4 g/dL (3.2-5.5); ALBUMIN/GLOBULIN RATIO 1.3 (1.0-2.2); BILIRUBIN,TOTAL 0.8 mg/dL (0.2-1.0); CALCIUM 9.5 mg/dL (8.5-10.3); CREATININE 0.8 mg/dL (0.6-1.2); MAGNESIUM 1.8 mg/dL (1.7-2.8); TOTAL PROTEIN 7.9 g/dL (6.7-8.2)
== END 2019-02-06 23:59 ==
LOC: LAB.WCP 03:36
PROVIDERS: ATTEND Family Medicine
DX: F10.20 Alcohol dependence, uncomplicated (principal)
CPT/HCPCS: 36415; 80053; 83735; 85025

== ENCOUNTER 2019-11-12 11:36 | Outpatient (CLI) | payer MEDICAID ==
[2019-11-12 18:04] LABS: BASOPHILS % (AUTO) 0.4 %; EOSINOPHILS # (AUTO) 0.3 10^3/uL (0.0-0.7); EOSINOPHILS % (AUTO) 3.6 %; HGB - HEMOGLOBIN 15.6 g/dL (14.0-18.0); LYMPHOCYTES # (AUTO) 2.2 10^3/uL (1.5-3.5); LYMPHOCYTES % (AUTO) 30.1 %; MEAN CORPUSCULAR HEMOGLOBIN 31.8 pg (27.0-31.0); MEAN CORPUSCULAR HGB CONC 34.4 g/dL (32.0-36.0); MEAN CORPUSCULAR VOLUME 92.3 fL (80.0-94.0); MEAN PLATELET VOLUME 10.5 fL (7.4-11.4); MONOCYTES # (AUTO) 0.6 10^3/uL (0.0-1.0); MONOCYTES % (AUTO) 8.2 %; NEUTROPHILS # (AUTO) 4.2 10^3/uL (1.5-6.6); NEUTROPHILS % (AUTO) 57.4 %; PLT - PLATELET COUNT 234 10^3/uL (130-450); RED BLOOD COUNT 4.91 10^6/uL (4.70-6.10); RED CELL DISTRIBUTION WIDTH 12.8 % (12.0-15.0); WHITE BLOOD COUNT 7.3 x10^3/uL (4.8-10.8)
[2019-11-12 18:47] LABS: ALBUMIN 4.4 g/dL (3.2-5.5); ALBUMIN/GLOBULIN RATIO 1.8 (1.0-2.2); ALKALINE PHOSPHATASE 58 IU/L (42-121); ALT ALANINE AMINOTRANSFERASE 20 IU/L (10-60); AST ASPARTATE AMINOTRANSFERASE 22 IU/L (10-42); BILIRUBIN,TOTAL 0.7 mg/dL (0.2-1.0); BUN - BLOOD UREA NITROGEN 17 mg/dL (6-20); CALCIUM 8.9 mg/dL (8.5-10.3); CARBON DIOXIDE - CO2 25 mmol/L (21-32); CHLORIDE 106 mmol/L (101-111); CHOL/HDL RATIO 3.1 (<5.0); CHOLESTEROL 175 mg/dL; CREATININE 0.8 mg/dL (0.6-1.2); GLUCOSE 85 mg/dL (70-100); HDL CHOLESTEROL 56 mg/dL; LDL CHOLESTEROL,CALCULATED 104 mg/dL; LDL/HDL RATIO 1.9 (<3.6); SODIUM 138 mmol/L (135-145); TOTAL PROTEIN 6.8 g/dL (6.7-8.2); VLDL CHOLESTEROL 15 mg/dL
== END 2019-11-12 23:59 | disposition home or self-care (01) ==
LOC: LAB.WCP 11:36
PROVIDERS: ATTEND Family Medicine
DX: R79.89 Other specified abnormal findings of blood chemistry (principal); Z12.5 Encounter for screening for malignant neoplasm of prostate; F32.9 Major depressive disorder, single episode, unspecified; D75.89 Other specified diseases of blood and blood-forming organs; G40.909 Epilepsy, unspecified, not intractable, without status epilepticus
CPT/HCPCS: 36415; 80053; 80061; 83721; 84153; 84443; 85025

== ENCOUNTER 2019-12-18 13:53 | Outpatient (CLI) | payer MEDICAID ==
[2019-12-18 19:01] LABS: PSA FREE 0.93 ng/mL (0.16-2.81)
[2019-12-18 19:02] LABS: PSA TOTAL 6.65 ng/mL (0.000-2.000)
== END 2019-12-18 23:59 | disposition home or self-care (01) ==
LOC: LAB.WCP 13:53
PROVIDERS: ATTEND Family Medicine
DX: R97.20 Elevated prostate specific antigen [PSA] (principal)
CPT/HCPCS: 36415; 84153; 84154

== ENCOUNTER 2020-03-26 08:00 | Outpatient (CLI) | payer MEDICAID ==
[2020-03-26 14:03] LABS: FOLATE 21.45 ng/mL (5.90 - >24.8)
== END 2020-03-26 23:59 | disposition home or self-care (01) ==
LOC: LAB.WCP 08:00
PROVIDERS: ATTEND Nurse Practitioner
DX: G62.9 Polyneuropathy, unspecified (principal); F10.239 Alcohol dependence with withdrawal, unspecified; G40.89 Other seizures
CPT/HCPCS: 36415; 82607; 82746

== ENCOUNTER 2020-06-27 08:00 | Outpatient (CLI) | payer MEDICAID ==
[2020-06-27 17:58] LABS: BASOPHILS # (AUTO) 0.1 10^3/uL (0.0-0.1); BASOPHILS % (AUTO) 0.7 %; EOSINOPHILS # (AUTO) 0.3 10^3/uL (0.0-0.7); EOSINOPHILS % (AUTO) 3.7 %; HCT - HEMATOCRIT 46.6 % (42.0-52.0); HGB - HEMOGLOBIN 16.1 g/dL (14.0-18.0); LYMPHOCYTES # (AUTO) 2.5 10^3/uL (1.5-3.5); LYMPHOCYTES % (AUTO) 27.4 %; MEAN CORPUSCULAR HEMOGLOBIN 31.2 pg (27.0-31.0); MEAN CORPUSCULAR HGB CONC 34.5 g/dL (32.0-36.0); MEAN CORPUSCULAR VOLUME 90.3 fL (80.0-94.0); MEAN PLATELET VOLUME 10.9 fL (7.4-11.4); MONOCYTES # (AUTO) 0.5 10^3/uL (0.0-1.0); MONOCYTES % (AUTO) 5.7 %; NEUTROPHILS # (AUTO) 5.6 10^3/uL (1.5-6.6); NEUTROPHILS % (AUTO) 62.3 %; PLT - PLATELET COUNT 275 10^3/uL (130-450); RED BLOOD COUNT 5.16 10^6/uL (4.70-6.10); RED CELL DISTRIBUTION WIDTH 12.5 % (12.0-15.0); WHITE BLOOD COUNT 8.9 x10^3/uL (4.8-10.8)
[2020-06-27 18:29] LABS: ALBUMIN 4.7 g/dL (3.2-5.5); ALBUMIN/GLOBULIN RATIO 1.8 (1.0-2.2); ALKALINE PHOSPHATASE 67 IU/L (42-121); ALT ALANINE AMINOTRANSFERASE 19 IU/L (10-60); AST ASPARTATE AMINOTRANSFERASE 18 IU/L (10-42); BILIRUBIN,TOTAL 0.9 mg/dL (0.2-1.0); BUN - BLOOD UREA NITROGEN 20 mg/dL (6-20); CALCIUM 9.5 mg/dL (8.5-10.3); CARBON DIOXIDE - CO2 22 mmol/L (21-32); CHLORIDE 106 mmol/L (101-111); CHOL/HDL RATIO 3.2 (<5.0); CHOLESTEROL 191 mg/dL; CREATININE 0.8 mg/dL (0.6-1.2); GFR - MDRD 100 (>89); GLUCOSE 90 mg/dL (70-100); HDL CHOLESTEROL 59 mg/dL; LDL CHOLESTEROL,CALCULATED 85 mg/dL; LDL/HDL RATIO 1.4 (<3.6); POTASSIUM 4.3 mmol/L (3.5-5.0); SODIUM 139 mmol/L (135-145); TOTAL PROTEIN 7.3 g/dL (6.7-8.2); TRIGLYCERIDES 234 mg/dL; VLDL CHOLESTEROL 47 mg/dL
[2020-06-27 18:43] LABS: THYROID STIMULATING HORMONE 1.9 uIU/mL (0.34-5.60)
[2020-06-27 20:24] LABS: ESTIMATED AVERAGE GLUCOSE 103 mg/dL (70-100); HEMOGLOBIN A1c% 5.2 % (4.27-6.07)
== END 2020-06-27 23:59 | disposition home or self-care (01) ==
LOC: LAB.WCP 08:00
PROVIDERS: ATTEND Internal Medicine
DX: E78.5 Hyperlipidemia, unspecified (principal); R41.89 Other symptoms and signs involving cognitive functions and awareness; Z83.3 Family history of diabetes mellitus; G62.9 Polyneuropathy, unspecified
CPT/HCPCS: 36415; 80053; 80061; 82043; 82570; 82607; 83036; 83721; 84443; 85025

== ENCOUNTER 2020-07-30 16:11 | Emergency (ER) | payer MEDICAID ==
--- OUTSIDE RECORDS SUMMARY | 2020-07-30 16:15 | EXTERNAL MEDICAL SUMMARY RPT | Continuity of Care Document ---
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
--- OUTSIDE RECORDS SUMMARY | 2020-07-30 16:22 | EXTERNAL MEDICAL SUMMARY RPT | Continuity of Care Document ---
:1960 Demographics Phone Unavailable Preferred Language Kazakh Marital Status Unknown [facility] Affiliation Unknown Race Unknown Ethnic Group Unknown Author Organization [place] Address [address] [place] [address] Phone Allergies Encounters Medications Problems date description facility [id number] Other symptoms and signs involving cogn itive functions [facility] and a [id number] Hereditary and idiopathic neuropathy, u nspecified 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
--- NOTE | 2020-07-30 19:00 | Ultrasound Report ---
PROCEDURE: Testicle w/Doppler INDICATIONS: Testicular pain and swelling TECHNIQUE: Real-time scanning was performed of the scrotum and testicles, with image documentation. Color and p ulse Doppler interrogation was performed of both testicles. COMPARISON: None. FINDINGS: Right: Testicle is normal in size at 2.3 x 2.7 x 4.7 cm, and homogenous in echotexture. There are sm all epididymal head cysts. Small hydrocele. No varicocele. Overlying scrotal skin is normal in thickn ess Left: Testicle is normal in size at 2.4 x 3.1 x 4.4 cm, and homogeneous in echotexture. Small epidid ymal head cysts. Small hydrocele and small [id number] varicocele. Overlying scrotal skin is nor mal in thickness. Doppler: Color and pulse Doppler demonstrate normal and symmetric arterial flow in both testicles. IMPRESSION: Small bilateral hydroceles. Mild to moderate left varicocele. Reducible right inguinal hernia containing fat with a hernia neck measuring approximately 2.5 cm in w idth. Reviewed by: Adolfo Rice MD on 07/30/2020 6:59 PM PDT Approved by: Adolfo Rice MD on 07/30/2020 6:59 PM PDT Station ID: [id number]
--- NOTE | 2020-07-30 19:02 | ED Physician Documentation ---
History of Present Illness - Stated complaint Stated Complaint: male gu - Chief complaint Chief Complaint: Abd Pain - History obtained from History obtained from: Patient - History of Present Illness Timing: Today Pain level max: 0 Pain level now: 0 - Additonal information Additional information: 59-year-old male presents to the emergency department stating that 3 days ago when he was attempting to have an orgasm he felt like "nothing came out". He states that he has had a right testicular pain and occasional right-sided scrotal swelling since that time. He went to the walk-in clinic today and they immediately sent him here for evaluation. No exam was performed there. Nothing makes it better or worse. He currently is asymptomatic. Review of Systems Ten Systems: 10 systems reviewed and negative Constitutional: denies: Fever, Chills Respiratory: denies: Cough GI: denies: Vomiting, Diarrhea Musculoskeletal: denies: Neck pain, Back pain Neurologic: denies: Headache PD PAST MEDICAL HISTORY - Past Medical History Past Medical History: Yes Cardiovascular: None Respiratory: None Neuro: None Endocrine/Autoimmune: None GI: GERD : None HEENT: None Psych: Other Musculoskeletal: None Derm: None - Past Surgical History Past Surgical History: No - Present Medications Home Medications: Ambulatory Orders Medication Instructions Recorded Confirmed Krill/[place]-3/Dha/Epa/Lipids 1 each PO DAILY 18 07/26/17 [Krill Oil 350 mg Softgel] Multivitamin [Multiple Vitamins] 1 each PO DAILY 07/26/17 07/26/17 chlordiazePOXIDE [Librium] 50 mg PO Q6H 6 Days #30 capsule 01/29/19 - Allergies Allergies/Adverse Reactions: Allergies Allergy/AdvReac Type Severity Reaction Status Date / Time No Known Drug Allergies Allergy Verified 07/30/20 16:24 - Social History Does the pt smoke?: Yes Smoking Status: Current every day smoker Does the pt drink ETOH?: Yes Does the pt have substance abuse?: No - Immunizations Immunizations are current?: Yes - POLST Patient has POLST: No POLST Status: Full Code PD ED PE NORMAL - Vitals Vital signs reviewed: Yes - General General: Alert and oriented X 3, No acute distress - HEENT HEENT: Moist mucous membranes - Neck Neck: Supple, no meningeal sign - Cardiac Cardiac: RRR - Respiratory Respiratory: No respiratory distress, Clear bilaterally - Abdomen Abdomen: Soft, Non tender, Non distended - Male Male : Other (normal scrotum exam, normal testicular exam. R sided inguinal hernia, reducible. ) - Derm Derm: Warm and dry - Neuro Neuro: Alert and oriented X 3 - Psych Psych: Normal mood, Normal affect Results - Vitals Vitals: Vital Signs - 24 hr 07/30/20 07/30/20 16:24 19:31 Temperature 36.5 C Heart Rate 61 57 L Respiratory 16 16 Rate Blood Pressure 137/93 H 125/97 H O2 Saturation 100 99 Oxygen O2 Source [With Activity] Room air O2 Source Room air - Rads (name of study) Testicular ultrasound Radiology: Prelim report reviewed, EMP read contemporaneously, See rad report (IMPRESSION: Small bilateral hydroceles. Mild to moderate left varicocele. Reducible right inguinal hernia containing fat with a hernia neck measuring approximately 2.5 cm in) PD MEDICAL DECISION MAKING - ED course Complexity details: reviewed results, re-evaluated patient, considered differential, d/w patient ED course: 59-year-old male with a right-sided inguinal hernia. Normal testicular ultrasound other than small hydroceles and a small varicocele. We will have him follow-up with surgery for repair of the inguinal hernia. No other acute abnormalities at this time. Patient counseled regarding signs and symptoms for which I believe and urgent re-evaluation would be necessary. Patient with good understanding of and agreement to plan and is comfortable going home at this time This document was made in part using voice recognition software. While efforts are made to proofread this document, sound alike and grammatical errors may occur. Departure - Departure Disposition: 01 Home, Self Care Clinical Impression: Inguinal hernia Qualifiers: Obstruction and gangrene presence: without obstruction or gangrene Laterality: unilateral Recurrence: non-recurrent Qualified Code(s): K40.90 - Unilateral inguinal hernia, without obstruction or gangrene, not specified as recurrent Condition: Good Instructions: ED Hernia Inguinal Follow-Up: Juventino Gooden MD [Primary Care Provider] - Within 1 week Harsha Dukes MD [Provider Admit Priv/Credential] - Kiera De Anda MD [Provider Admit Priv/Credential] - Jeremy Hammond MD [Provider Admit Priv/Credential] - Comments: You have a right inguinal hernia and this is likely causing your symptoms. Please follow up with surgery for further care. Discharge Date/Time: 07/30/20 19:37
[2020-07-30 19:32] VITALS: BP 125/97
== END 2020-07-30 19:37 | disposition home or self-care (01) ==
LOC: ED 16:11
DX: K40.90 Unilateral inguinal hernia, without obstruction or gangrene, not specified as recurrent (principal); N43.3 Hydrocele, unspecified; I86.1 Scrotal varices; F17.200 Nicotine dependence, unspecified, uncomplicated
CPT/HCPCS: 93975; 99284

== ENCOUNTER 2020-09-03 10:01 | Day surgery (SDC) | payer MEDICAID ==
[~2020-09-03 10:01] MED LIST: ceFAZolin 2 GM/50 ML 2 GM/50 ML BAG IV ONE
[2020-09-03] MEDS ORDERED: LACTATED RINGERS 1,000 ML IV ONE ×2 (10:43→13:13)
[2020-09-03] MEDS ORDERED: MORPHINE 2 MG/ML CARPUJECT IVP PRN (10:58)
[2020-09-03] MEDS ORDERED: fentaNYL 100 MCG/2 ML VIAL IVP PRN (10:58)
[2020-09-03] MEDS ORDERED: ATROPINE ABBOJECT 1 MG/10 ML SYRINGE IVP PRN (10:58)
[2020-09-03] MEDS ORDERED: HYDROmorphone 0.5 MG/0.5 ML SYRINGE IVP PRN (10:58)
[2020-09-03] MEDS ORDERED: ONDANSETRON 4 MG/2 ML VIAL IVP PRN (10:58)
[2020-09-03] MEDS ORDERED: METOCLOPRAMIDE 10 MG/2 ML VIAL IVP PRN (10:58)
[2020-09-03] MEDS ORDERED: NALOXONE 0.4 MG/ML VIAL IVP PRN (10:58)
[2020-09-03] MEDS ORDERED: ePHEDrine 50 MG/ML VIAL IVP PRN (10:58)
--- NOTE | 2020-09-03 10:58 | ANESTHESIA ---
Pre-Anesthesia VS, & Labs - Diagnosis right inguinal hernia - Procedure Right inguinal hernia repair Vital Signs: Temp Pulse Resp BP Pulse Ox 36.4 C L 58 L 20 127/87 H 99 09/03/20 10:15 09/03/20 10:15 09/03/20 10:15 09/03/20 10:15 09/03/20 10:15 Height: 5 ft 10 in Weight (kg): 93.4 kg Body Mass Index: 29.5 BMI Classification: Overweight - NPO >8 hours - Lab Results Lab results reviewed: Yes Home Medications and Allergies Home Medications: Ambulatory Orders No Known Home Medications 08/29/20 No Known Home Medications 08/29/20 Allergies/Adverse Reactions: Allergies Allergy/AdvReac Type Severity Reaction Status Date / Time No Known Drug Allergies Allergy Verified 07/30/20 16:24 Anes History & Medical History - Anesthetic History Anesthesia Complications: reports: No previous complications Family history of Anesthesia Complications: Denies Family history of Malignant Hyperthermia: Denies - Medical History Cardiovascular: reports: None Pulmonary: reports: None Gastrointestinal: reports: GERD, Hemorrhoids Urinary: reports: None Neuro: reports: None Musculoskeletal: reports: None Endocrine/Autoimmune: reports: None Blood Disorders: reports: None Skin: reports: None Smoking Status: Current every day smoker Psychosocial: reports: Cannabis (nightly) Other Past Medical History: HIstory of EtOH abuse, 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
[2020-09-03] MEDS ORDERED: LACTATED RINGERS 1,000 ML IV SCH (11:00)
[2020-09-03] MEDS ORDERED: BUPIVACAINE 0.25% PF 30 ML VIAL ONE ×3 (11:15→12:33)
[2020-09-03] MEDS ORDERED: MIDAZOLAM 2 MG/2 ML VIAL ONE (11:19)
[2020-09-03] MEDS ORDERED: PROPOFOL 200 MG/20 ML VIAL IVP ONE ×2 (11:19→11:53)
[2020-09-03] MEDS ORDERED: fentaNYL 100 MCG/2 ML VIAL ONE (11:19)
[2020-09-03] MEDS ORDERED: DEXAMETHASONE 4 MG/ML VIAL ONE (12:01)
[2020-09-03] MEDS ORDERED: ONDANSETRON 4 MG/2 ML VIAL ONE (12:01)
[2020-09-03] MEDS ORDERED: BUPIVACAINE 0.25% PF 30 ML VIAL SUBQ ONE (12:06)
[2020-09-03] MEDS ORDERED: HYDROcod/ACETAM 5/325 MG TABLET PO PRN (13:17)
--- NOTE | 2020-09-03 13:22 | OPERATIVE REPORT ---
Operative Report - General Procedure Date: 09/03/20 Planned Procedure: open right inguinal hernia repair with mesh Pre-Op Diagnosis: right inguinal hernia Procedure Performed: open right inguinal hernia repair with mesh Post Op Diagnosis: right inguinal hernia direct - Procedure Note Primary Surgeon: cristofer wall Anesthesia Technique: General LMA, Local Pathology: none Estimated Blood Loss (mL): 0 Drain/Tube Type: Other (none) Indications: painful bulge Findings: as above. ilieoinguinal nerve ran in a medial direction away from the cord structures Complications: none - Other Other Information/Narrative: Patient was properly identified brought to the operating room and placed in supine position. Sequential compression devices were placed. General endotracheal anesthesia was induced. He was prepped and draped in a sterile fashion and given preoperative antibiotics. Local anesthetic was given throughout the procedure. A 5 cm incision was made in the direction of Eva's lines just cephalad of the pubic tubercle. Dissection proceeded with cutting current cautery. The superficial epigastric vein was identified clamped divided and tied with 3-0 Vicryl. Dissection proceeded down to the aponeurosis. The aponeurosis was opened in the direction of its fibers and extended to the external ring. Cord structures were mobilized and brought up. The nerves were carefully protected and preserved. Cord structures were mobilized and brought up. A direct hernia was identified. Preperitoneal fat was removed. The base was tied with 2 O vicryl. Polypropylene mesh was cut to size and with tails. The mesh was secured with multiple interrupted 0 Ethibond sutures. She was placed along the pubic tubercle, Rakesh's ligament area and along the shelving border of Poupart's ligament. Sutures were placed medially along the abdominal wall musculature and internal oblique. The medial tail of the mesh was secured to the shelving border of Poupart's ligament with 3 interrupted 0 ethibond sutures recreating the internal ring of appropriate size. An additional suture was placed in the crotch of the mesh recreating an internal ring of appropriate size. Aponeurosis was closed with a running 2-0 Vicryl suture. The opposite was closed with interrupted 3-0 Vicryl suture. Buried interrupted subdermal 3-0 Vicryl sutures were then placed. And was closed with a running 4-0 Monocryl subcuticular suture. Dressing was applied. Patient was awakened and brought to recovery in good condition.
[2020-09-03 14:12] VITALS: BP 120/78
--- NOTE | 2020-09-03 16:16 | ANESTHESIA POST OP EVALUATION ---
Anesthesia Post Eval - Post Anesthesia Eval Vitals: Last Vital Signs Temp 36.4 C L 09/03/20 14:10 Pulse 65 09/03/20 14:10 Resp 15 09/03/20 14:10 BP 120/78 09/03/20 14:10 Pulse Ox 98 09/03/20 14:10 CV Function Including HR & BP: Stable Pain Control: Satisfactory Nausea & Vomiting: Negative Mental Status: Baseline Respiratory Status: Airway Patent Hydration Status: Satisfactory Anesthesia Complications: None
== END 2020-09-03 10:02 | disposition home or self-care (01) ==
LOC: SDS 10:01
PROVIDERS: ATTEND Surgery
DX: K40.90 Unilateral inguinal hernia, without obstruction or gangrene, not specified as recurrent (principal); F17.210 Nicotine dependence, cigarettes, uncomplicated
CPT/HCPCS: 49505; C1781; J0690; J7120

== ENCOUNTER 2020-09-28 11:24 | Emergency (ER) | payer MEDICAID ==
--- NOTE | 2020-09-28 12:35 | XRAY Report ---
PROCEDURE: Hand 3 View LT INDICATIONS: pain/swelling TECHNIQUE: 3 views of the hand(s) acquired. COMPARISON: None FINDINGS: Bones: No fractures or dislocations. No suspicious bony lesions. Age-appropriate degenerative aguirre ges are seen. Soft tissues: Mild generalized soft tissue swelling is seen. No radiopaque foreign bodies are seen. IMPRESSION: Mild generalized soft tissue swelling is seen, without an acute abnormality seen by plain film. Reviewed by: Fredy Antony MD on 09/28/2020 11:34 AM TYREL Approved by: Fredy Antony MD on 09/28/2020 11:34 AM TYREL Station ID: [id number]
--- NOTE | 2020-09-28 13:32 | ED Physician Documentation ---
History of Present Illness - Stated complaint Stated Complaint: LT HAND SWELLING - Chief complaint Chief Complaint: Ext Problem - History obtained from History obtained from: Patient - Additonal information Additional information: Patient comes emergency department chief complaint of left hand swelling. He is not exactly sure how long this is been going on, though he thinks may be a week. 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 He states that he usually uses the pincher grasp of his bilateral hands and that especially with his left hand, he begins to have pain in the second metacarpophalangeal joint. He states that the pain and swelling that he is having currently seems to be centered in the same place. Patient denies any erythema in the area. No fevers or chills. No streak going up his arm. No history of gout that he knows of. No history of lupus or rheumatoid arthritis or psoriatic arthritis. The patient has no prior history of surgery or other instrumentation to that joint. No other complaints at this time. Review of Systems Ten Systems: 10 systems reviewed and negative Constitutional: reports: Reviewed and negative Eyes: reports: Reviewed and negative Ears: reports: Reviewed and negative Nose: reports: Reviewed and negative Throat: reports: Reviewed and negative Cardiac: reports: Reviewed and negative Respiratory: reports: Reviewed and negative GI: reports: Reviewed and negative : reports: Reviewed and negative Skin: reports: Reviewed and negative Musculoskeletal: reports: Extremity pain, Joint pain, Extremity swelling Neurologic: reports: Reviewed and negative Psychiatric: reports: Reviewed and negative Endocrine: reports: Reviewed and negative Immunocompromised: reports: Reviewed and negative PD PAST MEDICAL HISTORY - Past Medical History Past Medical History: Yes Cardiovascular: None Respiratory: None Neuro: None Endocrine/Autoimmune: None GI: GERD, Hemorrhoids : None HEENT: Other Psych: Panic attacks Musculoskeletal: None Derm: None - Past Surgical History Past Surgical History: No General: Colonoscopy - Present Medications Home Medications: Ambulatory Orders Medication Instructions Recorded Confirmed HYDROcod/ACETAM 5/325 [Geraldine 5/325] 1 each PO Q6H PRN #35 tablet 09/03/20 predniSONE [Deltasone] 60 mg PO DAILY 5 Days #15 tablet 09/28/20 - Allergies Allergies/Adverse Reactions: Allergies Allergy/AdvReac Type Severity Reaction Status Date / Time No Known Drug Allergies Allergy Verified 07/30/20 16:24 - Social History Does the pt smoke?: Yes Smoking Status: Current every day smoker Does the pt drink ETOH?: Yes Does the pt have substance abuse?: No - Immunizations Immunizations are current?: Yes - POLST Patient has POLST: No POLST Status: Full Code PD ED PE NORMAL - Vitals Vital signs reviewed: Yes - General General: Alert and oriented X 3, No acute distress, Well developed/nourished - HEENT HEENT: Atraumatic, PERRL, EOMI, Moist mucous membranes - Neck Neck: Supple, no meningeal sign - Cardiac Cardiac: Strong equal pulses - Respiratory Respiratory: No respiratory distress - Derm Derm: Warm and dry, Other (No erythema over second left metacarpophalangeal joint.) - Extremities Extremities: No deformity, Other (Edema and tenderness over left second metacarpal phalangeal joint. Patient is able to extend and flex, though this is limited secondary to pain.Remainder of extremity exam negative.) - Neuro Neuro: Alert and oriented X 3 - Psych Psych: Normal mood, Normal affect Results - Vitals Vitals: Vital Signs - 24 hr 09/28/20 11:32 Temperature 36.6 C Heart Rate 66 Respiratory 16 Rate Blood Pressure 142/86 H O2 Saturation 99 Oxygen O2 Source [With Activity] Room air O2 Source Room air - Labs Labs: Laboratory Tests 09/28/20 12:40 Uric Acid 6.0 - Rads (name of study) X-ray left hand Radiology: Final report received, EMP read indepedently, See rad report (Negative) PD MEDICAL DECISION MAKING - ED course Complexity details: reviewed results, re-evaluated patient, considered differential, d/w patient ED course: I discussed with the patient that he may have chronic inflammation from overuse of the joint over the years, and this may have flared up for some unknown reason. We also discussed the possibility of gout. The patient has not had distinct recent injury to raise concern for bony or ligamentous trauma acutely. He was sent for x-ray of his left hand which was unremarkable. Uric acid level was 9 normal. Patient is given a dose of prednisone here. Have discussed with him that this inflammation will most likely blow over on its own, and that if he still having symptoms after couple of weeks, he should go and speak with his doctor about further testing, including potentially MRI, that may need to be done. Patient can also consider asking for referral to an orthopedic hand specialist. We have discussed symptomatic treatment at home, as well as usual indications for return. I will place him on a short course of steroids for symptomatic control. We have also discussed icing. Departure - Departure Disposition: 01 Home, Self Care Clinical Impression: Arthritis Condition: Stable Instructions: ED Degenerative Joint Disease Prescriptions: predniSONE [Deltasone] 60 mg PO DAILY 5 Days #15 tablet Comments: Your x-ray does not show any acute injury to your hand/index finger joint. The lab looking for the chemical that causes gout is normal. Most likely, you have some chronic wear and tear to the joint that has caused a flareup. Sometimes this can happen for unclear reasons. If the flareup has not down after the next couple of weeks, you should talk to your doctor about whether any further testing is needed, including MRI. You may also discuss with your doctor whether referral to an orthopedic hand specialist would be helpful. Please continue to apply ice several times a day for 20 minutes at a time to help with swelling. You may take ibuprofen along with the steroids that have been prescribed.
[2020-09-28 14:11] VITALS: BP 129/69
== END 2020-09-28 14:11 | disposition home or self-care (01) ==
LOC: ED 11:24
DX: M19.042 Primary osteoarthritis, left hand (principal); F17.200 Nicotine dependence, unspecified, uncomplicated
CPT/HCPCS: 36415; 84550; 99284

== ENCOUNTER 2021-02-23 09:46 | Outpatient (CLI) | payer MEDICAID ==
[2021-02-23 21:06] LABS: BASOPHILS # (AUTO) 0.1 10^3/uL (0.0-0.1); BASOPHILS % (AUTO) 0.5 %; EOSINOPHILS # (AUTO) 0.3 10^3/uL (0.0-0.7); EOSINOPHILS % (AUTO) 2.7 %; HCT - HEMATOCRIT 47.8 % (42.0-52.0); HGB - HEMOGLOBIN 16.5 g/dL (14.0-18.0); LYMPHOCYTES # (AUTO) 2.2 10^3/uL (1.5-3.5); MEAN CORPUSCULAR HEMOGLOBIN 31.7 pg (27.0-31.0); MEAN CORPUSCULAR HGB CONC 34.5 g/dL (32.0-36.0); MEAN CORPUSCULAR VOLUME 91.9 fL (80.0-94.0); MEAN PLATELET VOLUME 10.7 fL (7.4-11.4); MONOCYTES # (AUTO) 0.4 10^3/uL (0.0-1.0); MONOCYTES % (AUTO) 4.2 %; NEUTROPHILS # (AUTO) 6.7 10^3/uL (1.5-6.6); NEUTROPHILS % (AUTO) 69.4 %; PLT - PLATELET COUNT 284 10^3/uL (130-450); RED CELL DISTRIBUTION WIDTH 12.8 % (12.0-15.0); WHITE BLOOD COUNT 9.7 x10^3/uL (4.8-10.8)
[2021-02-23 21:14] LABS: ALBUMIN 4.4 g/dL (3.2-5.5); ALBUMIN/GLOBULIN RATIO 1.6 (1.0-2.2); ALKALINE PHOSPHATASE 60 IU/L (42-121); ALT ALANINE AMINOTRANSFERASE 21 IU/L (10-60); AST ASPARTATE AMINOTRANSFERASE 19 IU/L (10-42); BILIRUBIN,TOTAL 0.5 mg/dL (0.2-1.0); BUN - BLOOD UREA NITROGEN 15 mg/dL (6-20); CALCIUM 9.6 mg/dL (8.5-10.3); CARBON DIOXIDE - CO2 26 mmol/L (21-32); CHLORIDE 104 mmol/L (101-111); CHOL/HDL RATIO 3.3 (<5.0); CHOLESTEROL 206 mg/dL; CREATININE 0.8 mg/dL (0.6-1.2); GFR - MDRD 99 (>89); GLUCOSE 99 mg/dL (70-100); HDL CHOLESTEROL 62 mg/dL; LDL CHOLESTEROL,CALCULATED 129 mg/dL; LDL/HDL RATIO 2.1 (<3.6); POTASSIUM 4.9 mmol/L (3.5-5.0); SODIUM 140 mmol/L (135-145); TOTAL PROTEIN 7.1 g/dL (6.7-8.2); TRIGLYCERIDES 74 mg/dL; VLDL CHOLESTEROL 15 mg/dL
[2021-02-23 21:17] LABS: THYROID STIMULATING HORMONE 1.71 uIU/mL (0.34-5.60)
== END 2021-02-23 09:47 | disposition home or self-care (01) ==
LOC: LAB.N 09:46
PROVIDERS: ATTEND Internal Medicine
DX: K70.0 Alcoholic fatty liver (principal); Z13.220 Encounter for screening for lipoid disorders; R97.20 Elevated prostate specific antigen [PSA]; F43.23 Adjustment disorder with mixed anxiety and depressed mood
CPT/HCPCS: 36415; 80053; 80061; 83721; 84153; 84443; 85025

== ENCOUNTER 2021-04-06 08:33 | Outpatient (CLI) | payer MEDICAID ==
[2021-04-06 11:50] LABS: ALBUMIN 4.3 g/dL (3.2-5.5); BILIRUBIN,DIRECT 0.1 mg/dL (0.1-0.5); BILIRUBIN,TOTAL 0.6 mg/dL (0.2-1.0)
== END 2021-04-06 08:34 | disposition home or self-care (01) ==
LOC: LAB.N 08:33
PROVIDERS: ATTEND Internal Medicine
DX: B35.1 Tinea unguium (principal)
CPT/HCPCS: 36415; 80076

== ENCOUNTER 2021-11-01 06:55 | Outpatient (CLI) | payer MEDICAID ==
[2021-11-01] MEDS ORDERED: DIATRIZOATE MEGLU/DIATRIZO SOD 30 ML BOTTLE PO ONE (07:15)
--- NOTE | 2021-11-01 11:02 | CT Report ---
PROCEDURE: PELVIS WO INDICATIONS: RIGHT INGUINAL HERNIA TECHNIQUE: After the administration of oral contrast material, 3 mm axial sections acquired through the bony pel vis, with coronal and sagittal reformatting. For radiation dose reduction, the following was used: a utomated exposure control, adjustment of mA and/or kV according to patient size. COMPARISON: Pelvic ultrasound 09/04/2021 FINDINGS: Image quality: Excellent. Bones: No acute fracture or dislocation. Moderate degenerative changes are seen in the hips bilatera lly with joint space narrowing, subchondral cystic changes, and marginal osteophyte formation. Soft tissues: No inguinal or femoral hernia seen on the current exam. Bladder, prostate, and rectum are unremarkable. A few diverticula are seen in the included colon. IMPRESSION: 1.No inguinal hernia is seen on the current exam. 2.Moderate bilateral hip osteoarthrosis. Reviewed by: Solo Hinojosa MD on 11/01/2021 10:00 AM TYREL Approved by: Solo Hinojosa MD on 11/01/2021 10:00 AM TYREL Station ID: [id number]
== END 2021-11-01 06:56 | disposition home or self-care (01) ==
LOC: DI 06:55
PROVIDERS: ATTEND Surgery
DX: K40.90 Unilateral inguinal hernia, without obstruction or gangrene, not specified as recurrent (principal); M16.0 Bilateral primary osteoarthritis of hip
CPT/HCPCS: 72192; Q9963

== ENCOUNTER 2021-12-07 11:26 | Outpatient (CLI) | payer MEDICAID ==
[2021-12-07 11:41] LABS: BASOPHILS # (AUTO) 0.1 10^3/uL (0.0-0.1); BASOPHILS % (AUTO) 0.7 %; EOSINOPHILS # (AUTO) 0.3 10^3/uL (0.0-0.7); EOSINOPHILS % (AUTO) 3.9 %; HCT - HEMATOCRIT 45.4 % (42.0-52.0); HGB - HEMOGLOBIN 15.5 g/dL (14.0-18.0); LYMPHOCYTES # (AUTO) 2.5 10^3/uL (1.5-3.5); LYMPHOCYTES % (AUTO) 35.3 %; MEAN CORPUSCULAR HEMOGLOBIN 30.5 pg (27.0-31.0); MEAN CORPUSCULAR HGB CONC 34.1 g/dL (32.0-36.0); MEAN CORPUSCULAR VOLUME 89.4 fL (80.0-94.0); MEAN PLATELET VOLUME 9.5 fL (7.4-11.4); MONOCYTES # (AUTO) 0.4 10^3/uL (0.0-1.0); MONOCYTES % (AUTO) 6.2 %; NEUTROPHILS # (AUTO) 3.8 10^3/uL (1.5-6.6); NEUTROPHILS % (AUTO) 53.8 %; PLT - PLATELET COUNT 227 10^3/uL (130-450); RED BLOOD COUNT 5.08 10^6/uL (4.70-6.10); RED CELL DISTRIBUTION WIDTH 12.4 % (12.0-15.0)
[2021-12-07 11:43] LABS: BILIRUBIN,URINE NEGATIVE (NEGATIVE); GLUCOSE, URINE (UA) NEGATIVE (NEGATIVE); KETONES,URINE (UA) NEGATIVE (NEGATIVE); LEUKOCYTE ESTERASE, URINE NEGATIVE (NEGATIVE); NITRITE,URINE NEGATIVE (NEGATIVE); OCCULT BLOOD,URINE NEGATIVE (NEGATIVE); PH,URINE 5.5 PH (5.0-7.5); PROTEIN,URINE NEGATIVE (NEGATIVE); UROBILINOGEN,URINE 0.2 (NORMAL) E.U./dL (NORMAL)
[2021-12-07 11:44] LABS: CLARITY,URINE CLEAR (CLEAR)
[2021-12-07 11:53] LABS: BACTERIA,URINE None Seen /HPF (None Seen); RBC,URINE None Seen /HPF (0-5); SQUAMOUS EPITHELIAL CELL,UR NONE SEEN (<= Few); WBC,URINE 0-3 /HPF (0-3)
[2021-12-07 12:02] LABS: ALBUMIN 4.2 g/dL (3.2-5.5); ALBUMIN/GLOBULIN RATIO 1.6 (1.0-2.2); ALKALINE PHOSPHATASE 53 IU/L (42-121); ALT ALANINE AMINOTRANSFERASE 14 IU/L (10-60); AST ASPARTATE AMINOTRANSFERASE 16 IU/L (10-42); BILIRUBIN,TOTAL 0.8 mg/dL (0.2-1.0); BUN - BLOOD UREA NITROGEN 12 mg/dL (6-20); CALCIUM 9.2 mg/dL (8.5-10.3); CARBON DIOXIDE - CO2 24 mmol/L (21-32); CHLORIDE 103 mmol/L (101-111); CHOL/HDL RATIO 3.2 (<5.0); CHOLESTEROL 178 mg/dL; CREATININE 0.8 mg/dL (0.6-1.2); GFR - MDRD 99 (>89); GLUCOSE 93 mg/dL (70-100); HDL CHOLESTEROL 56 mg/dL; LDL CHOLESTEROL,CALCULATED 110 mg/dL; POTASSIUM 3.9 mmol/L (3.5-5.0); SODIUM 135 mmol/L (135-145); TOTAL PROTEIN 6.8 g/dL (6.7-8.2); TRIGLYCERIDES 58 mg/dL; VLDL CHOLESTEROL 12 mg/dL
[2021-12-07 12:13] LABS: THYROID STIMULATING HORMONE 1.55 uIU/mL (0.34-5.60)
== END 2021-12-07 11:27 | disposition home or self-care (01) ==
LOC: LAB 11:26
PROVIDERS: ATTEND Internal Medicine
DX: E78.5 Hyperlipidemia, unspecified (principal); R41.89 Other symptoms and signs involving cognitive functions and awareness; K70.0 Alcoholic fatty liver; Z87.438 Personal history of other diseases of male genital organs
CPT/HCPCS: 36415; 80053; 80061; 81001; 83721; 84153; 84443; 85025; 87086

== ENCOUNTER 2022-02-06 12:41 | Outpatient (CLI) | payer MEDICAID ==
--- NOTE | 2022-02-06 18:49 | XRAY Report ---
PROCEDURE: Chest 2 View X-Ray INDICATIONS: ACUTE BRONCHITIS TECHNIQUE: 2 views of the chest were acquired. COMPARISON: None FINDINGS: Surgical changes and devices: None. Lungs and pleura: Mild peribronchial cuffing right basilar opacity no pleural effusions. Mediastinum: Mediastinal contours are normal. Heart size is normal. Bones and chest wall: No suspicious bony abnormalities. Soft tissues appear unremarkable. IMPRESSION: Mild peribronchial cuffing and right basilar opacity. This could represent bronchitis and possible ea rly airspace disease versus atelectasis. Consider future imaging surveillance to assess for resolutio n. Reviewed by: Norberto Hoffman MD on 02/06/2022 5:47 PM [place] Approved by: Norberto Hoffman MD on 02/06/2022 5:47 PM [place] Station ID: [id number]
== END 2022-02-06 12:42 | disposition home or self-care (01) ==
LOC: DI 12:41
PROVIDERS: ATTEND Internal Medicine
DX: J20.9 Acute bronchitis, unspecified (principal)

== ENCOUNTER 2022-05-14 10:38 | Outpatient (CLI) | payer MEDICAID ==
[2022-05-14 10:52] LABS: BASOPHILS % (AUTO) 0.3 %; EOSINOPHILS # (AUTO) 0.2 10^3/uL (0.0-0.7); HGB - HEMOGLOBIN 16.4 g/dL (14.0-18.0); LYMPHOCYTES # (AUTO) 1.9 10^3/uL (1.5-3.5); LYMPHOCYTES % (AUTO) 28.7 %; MEAN CORPUSCULAR HEMOGLOBIN 30.9 pg (27.0-31.0); MEAN CORPUSCULAR HGB CONC 34.2 g/dL (32.0-36.0); MEAN CORPUSCULAR VOLUME 90.4 fL (80.0-94.0); MEAN PLATELET VOLUME 9.5 fL (7.4-11.4); MONOCYTES # (AUTO) 0.4 10^3/uL (0.0-1.0); MONOCYTES % (AUTO) 5.3 %; NEUTROPHILS # (AUTO) 4.2 10^3/uL (1.5-6.6); NEUTROPHILS % (AUTO) 62.6 %; PLT - PLATELET COUNT 239 10^3/uL (130-450); RED BLOOD COUNT 5.31 10^6/uL (4.70-6.10); RED CELL DISTRIBUTION WIDTH 12.3 % (12.0-15.0); WHITE BLOOD COUNT 6.8 x10^3/uL (4.8-10.8)
[2022-05-14 11:16] LABS: ALBUMIN 4.6 g/dL (3.2-5.5); ALBUMIN/GLOBULIN RATIO 1.6 (1.0-2.2); BILIRUBIN,TOTAL 0.8 mg/dL (0.2-1.0); CREATININE 0.8 mg/dL (0.6-1.2); TOTAL PROTEIN 7.5 g/dL (6.7-8.2)
[2022-05-14 11:33] LABS: THYROID STIMULATING HORMONE 1.37 uIU/mL (0.34-5.60)
[2022-05-16 06:08] LABS: RPR Non Reactive (Non Reactive)
== END 2022-05-14 10:39 | disposition home or self-care (01) ==
LOC: LAB 10:38
PROVIDERS: ATTEND Internal Medicine
DX: F32.A Depression, unspecified (principal); F10.21 Alcohol dependence, in remission
CPT/HCPCS: 36415; 80053; 82607; 84443; 85025; 86592

== ENCOUNTER 2022-10-19 10:52 | Outpatient (CLI) | payer MEDICAID ==
[2022-10-19 17:59] LABS: BILIRUBIN,URINE NEGATIVE (NEGATIVE); GLUCOSE, URINE (UA) NEGATIVE (NEGATIVE); KETONES,URINE (UA) NEGATIVE (NEGATIVE); LEUKOCYTE ESTERASE, URINE NEGATIVE (NEGATIVE); NITRITE,URINE NEGATIVE (NEGATIVE); OCCULT BLOOD,URINE NEGATIVE (NEGATIVE); PROTEIN,URINE NEGATIVE (NEGATIVE); UROBILINOGEN,URINE 0.2 (NORMAL) E.U./dL (NORMAL)
[2022-10-19 18:01] LABS: CLARITY,URINE CLEAR (CLEAR)
[2022-10-19 21:12] LABS: CHLAMYDIA TRACHOMATIS DNA NEGATIVE (NEGATIVE); NEISSERIA GONORRHOEAE DNA NEGATIVE (NEGATIVE); TRICHOMONAS VAGINALIS DNA NEGATIVE (NEGATIVE)
== END 2022-10-19 10:53 | disposition home or self-care (01) ==
LOC: LAB.N 10:52
PROVIDERS: ATTEND Urology
DX: N52.9 Male erectile dysfunction, unspecified (principal); R30.0 Dysuria
CPT/HCPCS: 81001; 81003; 87086; 87491; 87591; 87661

== ENCOUNTER 2023-02-04 11:20 | Outpatient (CLI) | payer MEDICAID ==
[2023-02-04 11:38] LABS: BASOPHILS % (AUTO) 0.5 %; EOSINOPHILS # (AUTO) 0.2 10^3/uL (0.0-0.7); EOSINOPHILS % (AUTO) 2.2 %; HCT - HEMATOCRIT 49.3 % (42.0-52.0); HGB - HEMOGLOBIN 16.5 g/dL (14.0-18.0); LYMPHOCYTES # (AUTO) 2.3 10^3/uL (1.5-3.5); LYMPHOCYTES % (AUTO) 26.9 %; MEAN CORPUSCULAR HEMOGLOBIN 30.2 pg (27.0-31.0); MEAN CORPUSCULAR HGB CONC 33.5 g/dL (32.0-36.0); MEAN CORPUSCULAR VOLUME 90.3 fL (80.0-94.0); MEAN PLATELET VOLUME 9.7 fL (7.4-11.4); MONOCYTES # (AUTO) 0.4 10^3/uL (0.0-1.0); MONOCYTES % (AUTO) 4.1 %; NEUTROPHILS # (AUTO) 5.6 10^3/uL (1.5-6.6); NEUTROPHILS % (AUTO) 66.1 %; PLT - PLATELET COUNT 255 10^3/uL (130-450); RED BLOOD COUNT 5.46 10^6/uL (4.70-6.10); RED CELL DISTRIBUTION WIDTH 12.3 % (12.0-15.0); WHITE BLOOD COUNT 8.5 x10^3/uL (4.8-10.8)
[2023-02-04 11:53] LABS: ALKALINE PHOSPHATASE 58 IU/L (42-121); ALT ALANINE AMINOTRANSFERASE 15 IU/L (10-60); AST ASPARTATE AMINOTRANSFERASE 16 IU/L (10-42); BILIRUBIN,TOTAL 0.6 mg/dL (0.2-1.0); BUN - BLOOD UREA NITROGEN 12 mg/dL (6-20); CARBON DIOXIDE - CO2 29 mmol/L (21-32); CHLORIDE 104 mmol/L (101-111); CHOL/HDL RATIO 2.8 (<5.0); CHOLESTEROL 196 mg/dL; CREATININE 0.8 mg/dL (0.6-1.3); GFR - MDRD 99 (>89); GLUCOSE 107 mg/dL (74-104); HDL CHOLESTEROL 69 mg/dL; LDL CHOLESTEROL,CALCULATED 113 mg/dL; LDL/HDL RATIO 1.6 (<3.6); SODIUM 138 mmol/L (135-145); TOTAL PROTEIN 7.5 g/dL (6.4-8.9); TRIGLYCERIDES 69 mg/dL (48-352); VLDL CHOLESTEROL 14 mg/dL
[2023-02-04 12:08] LABS: THYROID STIMULATING HORMONE 2.06 uIU/mL (0.34-5.60)
== END 2023-02-04 11:21 | disposition home or self-care (01) ==
LOC: LAB 11:20
PROVIDERS: ATTEND Internal Medicine
DX: E78.5 Hyperlipidemia, unspecified (principal); F10.97 Alcohol use, unspecified with alcohol-induced persisting dementia; K70.0 Alcoholic fatty liver; Z12.5 Encounter for screening for malignant neoplasm of prostate; F41.8 Other specified anxiety disorders
CPT/HCPCS: 36415; 80053; 80061; 82105; 83721; 84153; 84443; 85025

== ENCOUNTER 2023-02-08 07:05 | Outpatient (CLI) | payer MEDICAID ==
--- NOTE | 2023-02-09 12:29 | Ultrasound Report ---
PROCEDURE: Abdomen Complete INDICATIONS: ALCOHOLIC FATTY LIVER TECHNIQUE: Real-time scanning was performed of the abdominal and retroperitoneal organs, with image documentatio n. COMPARISON: None. FINDINGS: Liver: Liver is normal in size and demonstrates diffusely increased hepatic echotexture. Portal vein is patent and demonstrates normal caliber. Gallbladder: There is a 7 x 5 x 7 mm gallstone. No gallbladder wall thickening, pericholecystic fluid collection or sonographic Huntley sign.. Biliary ducts: Intrahepatic bile ducts are non-dilated. Extrahepatic bile duct caliber measures 6 m m. Normal is 6-7 mm or less in diameter, or 10 mm or less post-cholecystectomy. Pancreas: Visualized portions of the pancreas are sonographically normal. Spleen: Spleen is normal in size and homogeneous in echotexture. Kidneys: Kidneys are normal in size and echotexture. Right kidney measures 12.3 cm long; left kidne y measures 12.3 cm long. No hydronephrosis or nephrolithiasis. No solid masses. No complex renal cy stic lesions which require follow-up. Aorta: Visualized aorta is normal in caliber at less than 3 cm. Iliacs: Proximal common iliac arteries are normal in caliber at less than 2.5 cm. IVC: Intrahepatic inferior vena cava is patent. Miscellaneous: No free abdominal fluid. IMPRESSION: 1. Diffusely increased hepatic echotexture, most likely secondary to hepatic fatty infiltration. Othe r hepatocellular disease, however, may have a similar sonographic appearance. Recommend correlation w ith liver function tests. 2. Cholelithiasis. No ultrasound findings to suggest acute cholecystitis. Reviewed by: Josselin Tolbert MD on 02/09/2023 12:28 PM PST Approved by: Josselin Tolbert MD on 02/09/2023 12:28 PM PST Station ID: [id number]
== END 2023-02-08 07:06 | disposition home or self-care (01) ==
LOC: DI 07:05
PROVIDERS: ATTEND Internal Medicine
DX: K70.0 Alcoholic fatty liver (principal); R10.11 Right upper quadrant pain; K80.20 Calculus of gallbladder without cholecystitis without obstruction

== ENCOUNTER 2023-11-11 08:55 | Outpatient (CLI) | payer MEDICAID ==
--- NOTE | 2023-11-11 10:40 | Ultrasound Report ---
PROCEDURE: Abdomen Limited INDICATIONS: FATTY LIVER TECHNIQUE: Real-time focused scanning was performed of the abdomen, with image documentation. COMPARISONS: 02/08/2023 FINDINGS: Liver: Normal size liver. Diffusely increased parenchymal echotexture. Smooth margin. No mass. Paten t portal vein with appropriate direction of flow. Gallbladder: Stone, polyp, or mucosal fold at the neck. No wall thickening, pericholecystic fluid, or sonographic Huntley sign. Dependent stone was present previously. Biliary ducts: Intrahepatic bile ducts are non-dilated. Extrahepatic bile duct caliber measures 3 m m. Normal is 6-7 mm or less in diameter, or 10 mm or less post-cholecystectomy. Pancreas: Not seen due to overlying bowel gas. Right kidney: Normal in size and echotexture. Right kidney measures 11.5 cm long. No hydronephrosis or nephrolithiasis. No solid masses. No complex renal cystic lesions which require follow-up. IVC: Intrahepatic inferior vena cava is patent. Miscellaneous: No right upper quadrant abdominal fluid. IMPRESSION: Mild hepatic hyperechogenicity, similar compared to prior. No suspicious liver mass. Probable stone at the neck of the gallbladder, previously dependent stone present. No sonographic sig n of acute cholecystitis. Reviewed by: Salud Gustafson MD on 11/11/2023 10:38 AM PDT Approved by: Salud Gustafson MD on 11/11/2023 10:38 AM PDT Station ID: [id number]
== END 2023-11-11 08:56 | disposition home or self-care (01) ==
LOC: DI 08:55
PROVIDERS: ATTEND Internal Medicine
DX: K70.0 Alcoholic fatty liver (principal)

== ENCOUNTER 2023-11-16 11:26 | Outpatient (CLI) | payer MEDICAID ==
[2023-11-16 18:18] LABS: BASOPHILS % (AUTO) 0.4 %; EOSINOPHILS # (AUTO) 0.2 10^3/uL (0.0-0.7); EOSINOPHILS % (AUTO) 1.6 %; HCT - HEMATOCRIT 43.4 % (42.0-52.0); HGB - HEMOGLOBIN 14.9 g/dL (14.0-18.0); LYMPHOCYTES # (AUTO) 2.2 10^3/uL (1.5-3.5); LYMPHOCYTES % (AUTO) 23.5 %; MEAN CORPUSCULAR HEMOGLOBIN 31.1 pg (27.0-31.0); MEAN CORPUSCULAR HGB CONC 34.3 g/dL (32.0-36.0); MEAN CORPUSCULAR VOLUME 90.6 fL (80.0-94.0); MEAN PLATELET VOLUME 10.4 fL (7.4-11.4); MONOCYTES # (AUTO) 0.6 10^3/uL (0.0-1.0); NEUTROPHILS # (AUTO) 6.4 10^3/uL (1.5-6.6); NEUTROPHILS % (AUTO) 68.3 %; PLT - PLATELET COUNT 243 10^3/uL (130-450); RED BLOOD COUNT 4.79 10^6/uL (4.70-6.10); RED CELL DISTRIBUTION WIDTH 12.4 % (12.0-15.0); WHITE BLOOD COUNT 9.4 x10^3/uL (4.8-10.8)
[2023-11-16 18:41] LABS: INR 1.1 (0.8-1.2); PT - PROTHROMBIN TIME 12.3 secs (9.9-12.6)
[2023-11-16 18:44] LABS: ALBUMIN 4.5 g/dL (3.2-5.5); ALBUMIN/GLOBULIN RATIO 2.3 (1.0-2.2); ALKALINE PHOSPHATASE 49 IU/L (42-121); ALT ALANINE AMINOTRANSFERASE 11 IU/L (10-60); AST ASPARTATE AMINOTRANSFERASE 13 IU/L (10-42); BILIRUBIN,TOTAL 0.6 mg/dL (0.2-1.0); BUN - BLOOD UREA NITROGEN 17 mg/dL (6-20); CALCIUM 9.8 mg/dL (8.5-10.3); CARBON DIOXIDE - CO2 25 mmol/L (21-32); CHLORIDE 104 mmol/L (101-111); CHOL/HDL RATIO 2.9 (<5.0); CHOLESTEROL 182 mg/dL; CREATININE 0.8 mg/dL (0.6-1.3); GFR - MDRD 99 (>89); GLUCOSE 96 mg/dL (74-104); HDL CHOLESTEROL 62 mg/dL; LDL CHOLESTEROL,CALCULATED 104 mg/dL; LDL/HDL RATIO 1.7 (<3.6); POTASSIUM 3.9 mmol/L (3.5-4.5); SODIUM 137 mmol/L (135-145); TOTAL PROTEIN 6.5 g/dL (6.4-8.9); TRIGLYCERIDES 80 mg/dL; VLDL CHOLESTEROL 16 mg/dL
[2023-11-16 18:51] LABS: THYROID STIMULATING HORMONE 2.03 uIU/mL (0.34-5.60)
== END 2023-11-16 11:27 | disposition home or self-care (01) ==
LOC: LAB.N 11:26
PROVIDERS: ATTEND Internal Medicine
DX: K70.0 Alcoholic fatty liver (principal); Z12.5 Encounter for screening for malignant neoplasm of prostate; E78.5 Hyperlipidemia, unspecified; F41.8 Other specified anxiety disorders
CPT/HCPCS: 36415; 80053; 80061; 82105; 83721; 84153; 84443; 85025; 85610